=== PATIENT | male | born 1940 | race Caucasian/White ===

== ENCOUNTER 2020-05-16 14:14 | Outpatient (CLI) | payer MEDICARE, OTHER, SELFPAY ==
--- NOTE | 2020-05-16 14:25 | US_ITS ---
WS: [id number] ULTRASOUND RENAL TECHNIQUE: Ultrasound examination of both kidneys. CLINICAL INFORMATION: ACUTE KIDNEY FAILURE COMPARISON: None. FINDINGS: Incidental bilateral simple renal cysts. No hydronephrosis. Largest cyst left kidney measur es 3.8 x 3.8 cm RIGHT: Right kidney is normal in size and appearance. Echogenicity: Normal. Cortical thickness: 0.7 cm; Normal. Hydronephrosis: None. Perinephric fluid: None. Right kidney measures: 9.4 cm x 5.3 cm x 4.1 cm. LEFT: Left kidney is normal in size and appearance. Echogenicity: Normal. Cortical thickness: 1.1 cm; Normal. Hydronephrosis: None. Perinephric fluid: None. Left kidney measures: 10.4 cm x 7.3 cm x 4.8 cm. Normal visualized aorta. Prevoid bladder volume 181 cc. Post void bladder volume 5 cc. Enlarged prost ate measuring 4.7 x 5.2 x 3.3 cm US/US renal BI with PV bladder IMPRESSION: 1. No hydronephrosis in either kidney. 2. Normal Post void bladder volume 5 cc. 3. Incidental bilateral simple renal cysts. 4. Enlarged prostate. Recommend correlation PSA.
== END 2020-05-16 14:15 | disposition home or self-care (01) ==
LOC: RAD 14:22
PROVIDERS: Family Provider Family Medicine; Visit Provider Family Medicine
DX: N17.9 Acute kidney failure, unspecified (principal); N40.0 Benign prostatic hyperplasia without lower urinary tract symptoms; N28.1 Cyst of kidney, acquired
CPT/HCPCS: 76770; 76857

== ENCOUNTER → 2021-01-20 09:36 | Outpatient (BNVA) | payer MEDICARE, OTHER, SELFPAY | PROVIDERS: Family Provider Family Medicine; PCP Family Medicine; Visit Provider Urology | DX: Z12.5 Encounter for screening for malignant neoplasm of prostate (principal); R97.20 Elevated prostate specific antigen [PSA]; N40.1 Benign prostatic hyperplasia with lower urinary tract symptoms; R39.89 Other symptoms and signs involving the genitourinary system | CPT/HCPCS: 81003; G0103 ==

== ENCOUNTER 2021-01-30 18:28 | Emergency (ER) | payer MEDICARE, OTHER, SELFPAY ==
[2021-01-30 19:08] VITALS: BP 149/86; PULSE 101; RESP 18; TEMP 37.4; O2SAT 93; BMI 20.3
--- NOTE | 2021-01-30 19:23 | CTR_ITS ---
PROCEDURE INFORMATION: Exam: CT Cervical Spine Without Contrast Exam date and time: 01/30/2021 7:23 PM Age: 80 years old Clinical indication: Injury or trauma; Fall; Blunt trauma TECHNIQUE: Imaging protocol: Computed tomography images of the cervical spine without contrast. Radiation optimization: All CT scans at this facility use at least one of these dose optimization techniques: automated exposure control; mA and/or kV adjustment per patient size (includes targeted exams where dose is matched to clinical indication); or iterative reconstruction. COMPARISON: No relevant prior studies available. RADIATION DOSE METRICS: Total DLP (mGy-cm): 165.81 FINDINGS: Vertebrae: There are moderate degenerative changes at C5-C6 and C6-C7. Normal alignment. No acute fractures. Soft tissues: Unremarkable. Lungs: Lung apices are normal. CT/CT cervical spin wo con* [id number] IMPRESSION: No acute injury. Radiation Dose CTDIVOL = (mGy): DLP = 165.81 (mGy-cm)
--- NOTE | 2021-01-30 19:24 | CTR_ITS ---
PROCEDURE INFORMATION: Exam: CT Head Without Contrast Exam date and time: 01/30/2021 7:24 PM Age: 80 years old Clinical indication: Injury or trauma; Fall; Blunt trauma (contusions or hematomas); Without loss of consciousness; Dizziness TECHNIQUE: Imaging protocol: Computed tomography of the head without contrast. Radiation optimization: All CT scans at this facility use at least one of these dose optimization techniques: automated exposure control; mA and/or kV adjustment per patient size (includes targeted exams where dose is matched to clinical indication); or iterative reconstruction. COMPARISON: No relevant prior studies available. RADIATION DOSE METRICS: Total DLP (mGy-cm): 1106.9 FINDINGS: Brain: Age appropriate atrophy and small vessel ischemic change. No evidence of intracranial hemorrhage, mass effect, midline shift or extra-axial fluid collections. Midline structures are normal. Valentin-white matter differentiation is normal. Cerebral ventricles: No ventriculomegaly. Paranasal sinuses: Mucosal thickening in the ethmoid and frontal sinuses. Mastoid air cells: Visualized mastoid air cells are well aerated. Orbital cavity: The patient has had bilateral lens replacement surgery. Vasculature: Carotid and vertebral artery atherosclerotic calcification. Bones/joints: Unremarkable. No acute fracture. Soft tissues: Unremarkable. CT/CT head wo con* [id number] IMPRESSION: No acute intracranial injury. Radiation Dose CTDIVOL = (mGy): DLP = 1106.9 (mGy-cm)
[2021-01-30 19:30] LABS: Glucose Point of Care 231 mg/dL (70-110)
[2021-01-30 23:11] VITALS: BP 149/82; PULSE 119; RESP 20; O2SAT 92
--- NOTE | 2021-01-30 23:44 | ED_ITS ---
Documented by User: KANIKA Logan 01/31/21 01:19 HPI - Fall General: Chief Complaint: Fall Stated Complaint: High Bloood Sugar\Fell\Dizzy Time Seen by Provider: 01/30/21 23:40 History of Present Illness: HPI Narrative: Patient this afternoon started having some dizziness when walking to the bathroom. Patient reports since he was started on medication for his prostate he has had increased dizzy spells. Patient also concerned because his blood sugars also been elevated above 200. Patient reports feeling better now but continues to have concerns about being lightheaded. Patient reports Dr. Godinez has him set up to have a biopsy of his prostate on Tuesday. Patient's last PSA was greater than 100. Review of Systems General: Reports: 10 or more systems reviewed and unremarkable except in HPI and below Neuro: Reports: dizziness PFSH ED PFSH: Medical History BPH loc w urin obs/LUTS Family History Father , AT AGE 77 Heart attack Mother , AT AGE 83 Aneurysm Social History Smoking and tobacco status: never smoked Alcohol intake: never Marital status: Current occupational status: retired History of recent travel: No Physical Exam Const: COMMON NORMALS: no acute distress and patient oriented x3 GENERAL APPEARANCE: cooperative HENMT: COMMON NORMALS: normocephalic and Normal external nose present HEAD & SCALP: normal to inspection and normocephalic NOSE: Normal external nose present MOUTH: Normal oral and palatal mucosa present Eye: GENERAL EYE: appearance normal, both eyes and all related structures Neck/C-Spine: COMMON NORMALS: full ROM Lymph: LYMPHATIC: no lymphadenopathy noted Chest: COMMONS NORMALS: normal inspection of the chest Resp: COMMON NORMALS: normal respiratory effort EFFORT & INSPECTION: Yes able to speak in complete sentences Cardio: COMMON NORMALS: regular rate and regular rhythm RATE: regular rate RHYTHM: regular rhythm GI: COMMON NORMALS: non-tender : COMMON NORMALS: Yes no CVA tenderness BLADDER/KIDNEY EXAM: Yes no CVA tenderness Back/Pelvis: COMMON NORMALS: no CVA tenderness and thoracic and lumbar spine normal to inspection Extremity: COMMON NORMALS: normal to inspection Neuro: COMMON NORMALS: patient oriented x3 and moves all extremities Psych: COMMON NORMALS: mental status grossly normal and cooperative Skin: COMMON NORMALS: no rashes or lesions noted GENERAL SKIN EXAM: no rashes or lesions noted Course Vital Signs: Vital signs: Vital Signs Temperature 99.3 F 01/30/21 19:08 Pulse Rate 110 H 01/31/21 01:26 Respiratory Rate 16 01/31/21 01:26 Blood Pressure 119/73 01/31/21 01:26 Pulse Oximetry 93 01/31/21 01:26 MDM - Fall MDM Narrative: Medical decision making narrative: Patient comes in today for complaints of lightheadedness. Patient reports he gets lightheaded frequently. Patient thinks is due to the prostate medication he was recently started on. On exam patient does have a blood pressure that is 100s over 60s. Respirations are even lungs are clear to auscultation. Skin is warm and dry. Patient is appropriate with speech. Differential diagnosis includes but not limited to dehydration, adverse drug effect, urinary tract infection. Patient does see Dr. Godinez for renal dysfunction. Patient's creatinine today is 1.6. Patient does have elevated white count 22.4. Patient's urine did have some white blood cells and bacteria in it. Suspect patient probably has a urinary tract infection which may be aggravating his dizziness more. We will start patient on Levaquin 500 daily for the next 7 days. Patient is scheduled to have a biopsy on Tuesday. Patient reported understanding of care plan and need for follow-up or return to the ER. Lab Data: Labs: Lab Results 01/30/21 01/31/21 01/31/21 19:27 00:15 00:15 WBC 22.4 10^3/uL H 10 ^3/uL (4.0-10.0) RBC 3.88 10^6/uL L 10 ^6/uL (4.1-5.3) Hgb 11.7 g/dL g/dL (11.7-16.6) Hct 36.6 % L % (42.0-52.0) MCV 94.3 fl H fl (80-94) MCH 30.2 pg pg (28.0-34.0) MCHC 32.0 g/dL g/dL (30.0-36.0) RDW 12.5 % % (12.1-15.1) Plt Count 267 10^3/cmm 10^3 /cmm (130-400) MPV 10.0 fL fL (7.4-10.4) Neut % (Auto) 90.4 % % Lymph % (Auto) 2.4 % % [place] % (Auto) 5.6 % % Eos % (Auto) 0.0 % % Baso % (Auto) 0.3 % % Neut # (Auto) 20.22 10^3/uL H 1 0^3/uL (1.8-7.7) Lymph # (Auto) 0.5 10^3/uL L 10^ 3/uL (0.8-4.8) [place] # (Auto) 1.3 10^3/uL H 10^ 3/uL (0.2-0.9) Eos # (Auto) 0.0 10^3/uL 10^3/ uL (0.0-0.8) Baso # (Auto) 0.1 10^3/uL 10^3/ uL (0.0-0.1) Nucleated RBC % (a uto) 0 % % Nucleated RBCs # 0.0 /100WBC /100W BC Sodium 133 mmol/L L mmol /L (136-145) Potassium 4.2 mmol/L mmol/L (3.5-5.1) Chloride 100 mmol/L mmol/L (98-107) Carbon Dioxide 21 mmol/L L mmol/ L (22-29) Anion Gap 16.2 (5-19) BUN 30 mg/dL H mg/dL (8-23) Creatinine 1.6 mg/dL H mg/dL (0.7-1.2) GFR Calculation Not Reportable Glucose 159 mg/dL H mg/dL (65-115) POC Glucose 231 mg/dL H mg/dL (70-110) Calculated Osmolal ity 286 mOsm/kg mOsm/ kg (285-295) Calcium 9.5 mg/dL mg/dL (8.5-10.5) Total Bilirubin 0.4 mg/dL mg/dL (0.15-1.2) AST 14 U/L U/L (0-40) ALT 7 U/L U/L (0-41) Alkaline Phosphata se 84 IU/L IU/L (40-130) Total Protein 7.7 g/dL g/dL (6.6-8.7) Albumin 3.6 g/dL g/dL (3.5-5.2) Globulin 4.1 g/dL g/dL (1.3-4.6) Urine Color Urine Appearance Urine pH Ur Specific Gravit y Urine Protein Urine Glucose (UA) Urine Ketones Urine Blood Urine Nitrate Urine Bilirubin Urine Urobilinogen Ur Leukocyte Eneida ase Urine RBC Urine WBC Ur Squamous Epith Cells Amorphous Sediment Urine Bacteria Hyaline Casts Coarse Granular Ca sts Serum Ketones 01/31/21 01/31/21 00:15 00:15 WBC RBC Hgb Hct MCV MCH MCHC RDW Plt Count MPV Neut % (Auto) Lymph % (Auto) [place] % (Auto) Eos % (Auto) Baso % (Auto) Neut # (Auto) Lymph # (Auto) [place] # (Auto) Eos # (Auto) Baso # (Auto) Nucleated RBC % (a uto) Nucleated RBCs # Sodium Potassium Chloride Carbon Dioxide Anion Gap BUN Creatinine GFR Calculation Glucose POC Glucose Calculated Osmolal ity Calcium Total Bilirubin AST ALT Alkaline Phosphata se Total Protein Albumin Globulin Urine Color Yellow (Yellow) Urine Appearance Sl hazy (CLEAR) Urine pH 5 (5-7) Ur Specific Gravit y 1.015 (1.005-1.030) Urine Protein 3+ H (Negative) Urine Glucose (UA) Norm (Normal) Urine Ketones Negative (Negative) Urine Blood 3+ H (Negative) Urine Nitrate Negative (Negative) Urine Bilirubin Neg (Negative) Urine Urobilinogen Norm mg/dL mg/dL (Negative) Ur Leukocyte Eneida ase Negative (Negative) Urine RBC 5-10 /hpf H /hpf (0-2) Urine WBC 0-4 /hpf H /hpf (0-5) Ur Squamous Epith Cells 0-4 /hpf H /hpf (0-5) Amorphous Sediment 1+ /hpf /hpf Urine Bacteria 2+ /hpf H /hpf (NONE) Hyaline Casts 0-4 /lpf H /lpf Coarse Granular Ca sts 0-4 /lpf H /lpf Serum Ketones Negative (Negative) Discharge Plan Discharge Patient Disposition: Home Clinical Impression: Acute UTI Fall Qualifiers: Encounter type: initial encounter Qualified Code(s): W19.XXXA - Unspecified fall, initial encounter Condition: Stable Prescriptions: Continued levofloxacin 500 mg tablet 500 mg PO DAILY Qty: 7 RF: 0 No Action lisinopril 5 mg tablet 5 mg PO DAILY RF: 0 finasteride 5 mg tablet 5 mg PO DAILY RF: 0 silodosin 8 mg capsule 8 mg PO DAILY Qty: 30 RF: 12 diazepam 10 mg tablet 10 mg PO ONCE Qty: 1 RF: 0 hydrocodone-acetaminophen 5-325 mg tablet 1 tab PO Q4H PRNRF: 0 aspirin 81 mg tablet,delayed release (DR/EC) 81 mg PO DAILY RF: 0 lovastatin 20 mg tablet 20 mg PO DAILY RF: 0 niacin 500 mg tablet 500 mg PO DAILY RF: 0 omeprazole 20 mg capsule,delayed release(DR/EC) 20 mg PO BID RF: 0 sodium polystyrene sulfonate 15 gram/60 mL suspension 15 g PO DAILY PRNRF: 0 Discharge Orders: Discharge ED (Routine); Ordered 01/31/21 Ordered By: Edgar Curry Discharge Diet: Usual diet Discharge Activity: Increase activity as tolerated Patient Instructions: Opioid Safety Activity Restrictions/Additional Instructions: Drink plenty of water. Take antibiotic daily for the next 7 days. Follow-up with primary care on Tuesday for recheck. Return to the ER for worsening symptoms or new concerns. Coding Level of Care Code ED Mathematics Instructor for Chg Fwd Exam Comprehensive Documented by User: Jhony Jaime DO 01/31/21 03:05 HPI - Fall General: Chief Complaint: Fall Stated Complaint: High Bloood Sugar\Fell\Dizzy Time Seen by Provider: 01/30/21 23:40 PFSH ED PFSH: Medical History BPH loc w urin obs/LUTS Family History Father , AT AGE 77 Heart attack Mother , AT AGE 83 Aneurysm Social History Smoking and tobacco status: never smoked Alcohol intake: never Marital status: Current occupational status: retired History of recent travel: No Course Vital Signs: Vital signs: Vital Signs Temperature 99.3 F 01/30/21 19:08 Pulse Rate 110 H 01/31/21 01:26 Respiratory Rate 16 01/31/21 01:26 Blood Pressure 119/73 01/31/21 01:26 Pulse Oximetry 93 01/31/21 01:26 MDM - Fall MDM Narrative: Medical decision making narrative: This patient was originally seen by KANIKA Peralta. I agree with his history, evaluation, and treatment. Lab Data: Labs: Lab Results 01/30/21 01/31/21 01/31/21 19:27 00:15 00:15 WBC 22.4 10^3/uL H 10 ^3/uL (4.0-10.0) RBC 3.88 10^6/uL L 10 ^6/uL (4.1-5.3) Hgb 11.7 g/dL g/dL (11.7-16.6) Hct 36.6 % L % (42.0-52.0) MCV 94.3 fl H fl (80-94) MCH 30.2 pg pg (28.0-34.0) MCHC 32.0 g/dL g/dL (30.0-36.0) RDW 12.5 % % (12.1-15.1) Plt Count 267 10^3/cmm 10^3 /cmm (130-400) MPV 10.0 fL fL (7.4-10.4) Neut % (Auto) 90.4 % % Lymph % (Auto) 2.4 % % [place] % (Auto) 5.6 % % Eos % (Auto) 0.0 % % Baso % (Auto) 0.3 % % Neut # (Auto) 20.22 10^3/uL H 1 0^3/uL (1.8-7.7) Lymph # (Auto) 0.5 10^3/uL L 10^ 3/uL (0.8-4.8) [place] # (Auto) 1.3 10^3/uL H 10^ 3/uL (0.2-0.9) Eos # (Auto) 0.0 10^3/uL 10^3/ uL (0.0-0.8) Baso # (Auto) 0.1 10^3/uL 10^3/ uL (0.0-0.1) Nucleated RBC % (a uto) 0 % % Nucleated RBCs # 0.0 /100WBC /100W BC Sodium 133 mmol/L L mmol /L (136-145) Potassium 4.2 mmol/L mmol/L (3.5-5.1) Chloride 100 mmol/L mmol/L (98-107) Carbon Dioxide 21 mmol/L L mmol/ L (22-29) Anion Gap 16.2 (5-19) BUN 30 mg/dL H mg/dL (8-23) Creatinine 1.6 mg/dL H mg/dL (0.7-1.2) GFR Calculation Not Reportable Glucose 159 mg/dL H mg/dL (65-115) POC Glucose 231 mg/dL H mg/dL (70-110) Calculated Osmolal ity 286 mOsm/kg mOsm/ kg (285-295) Calcium 9.5 mg/dL mg/dL (8.5-10.5) Total Bilirubin 0.4 mg/dL mg/dL (0.15-1.2) AST 14 U/L U/L (0-40) ALT 7 U/L U/L (0-41) Alkaline Phosphata se 84 IU/L IU/L (40-130) Total Protein 7.7 g/dL g/dL (6.6-8.7) Albumin 3.6 g/dL g/dL (3.5-5.2) Globulin 4.1 g/dL g/dL (1.3-4.6) Urine Color Urine Appearance Urine pH Ur Specific Gravit y Urine Protein Urine Glucose (UA) Urine Ketones Urine Blood Urine Nitrate Urine Bilirubin Urine Urobilinogen Ur Leukocyte Eneida ase Urine RBC Urine WBC Ur Squamous Epith Cells Amorphous Sediment Urine Bacteria Hyaline Casts Coarse Granular Ca sts Serum Ketones 01/31/21 01/31/21 00:15 00:15 WBC RBC Hgb Hct MCV MCH MCHC RDW Plt Count MPV Neut % (Auto) Lymph % (Auto) [place] % (Auto) Eos % (Auto) Baso % (Auto) Neut # (Auto) Lymph # (Auto) [place] # (Auto) Eos # (Auto) Baso # (Auto) Nucleated RBC % (a uto) Nucleated RBCs # Sodium Potassium Chloride Carbon Dioxide Anion Gap BUN Creatinine GFR Calculation Glucose POC Glucose Calculated Osmolal ity Calcium Total Bilirubin AST ALT Alkaline Phosphata se Total Protein Albumin Globulin Urine Color Yellow (Yellow) Urine Appearance Sl hazy (CLEAR) Urine pH 5 (5-7) Ur Specific Gravit y 1.015 (1.005-1.030) Urine Protein 3+ H (Negative) Urine Glucose (UA) Norm (Normal) Urine Ketones Negative (Negative) Urine Blood 3+ H (Negative) Urine Nitrate Negative (Negative) Urine Bilirubin Neg (Negative) Urine Urobilinogen Norm mg/dL mg/dL (Negative) Ur Leukocyte Eneida ase Negative (Negative) Urine RBC 5-10 /hpf H /hpf (0-2) Urine WBC 0-4 /hpf H /hpf (0-5) Ur Squamous Epith Cells 0-4 /hpf H /hpf (0-5) Amorphous Sediment 1+ /hpf /hpf Urine Bacteria 2+ /hpf H /hpf (NONE) Hyaline Casts 0-4 /lpf H /lpf Coarse Granular Ca sts 0-4 /lpf H /lpf Serum Ketones Negative (Negative) Discharge Plan Discharge Patient Disposition: Home Clinical Impression: Acute UTI Fall Qualifiers: Encounter type: initial encounter Qualified Code(s): W19.XXXA - Unspecified fall, initial encounter Condition: Stable Prescriptions: Continued levofloxacin 500 mg tablet 500 mg PO DAILY Qty: 7 RF: 0 No Action lisinopril 5 mg tablet 5 mg PO DAILY RF: 0 finasteride 5 mg tablet 5 mg PO DAILY RF: 0 silodosin 8 mg capsule 8 mg PO DAILY Qty: 30 RF: 12 diazepam 10 mg tablet 10 mg PO ONCE Qty: 1 RF: 0 hydrocodone-acetaminophen 5-325 mg tablet 1 tab PO Q4H PRNRF: 0 aspirin 81 mg tablet,delayed release (DR/EC) 81 mg PO DAILY RF: 0 lovastatin 20 mg tablet 20 mg PO DAILY RF: 0 niacin 500 mg tablet 500 mg PO DAILY RF: 0 omeprazole 20 mg capsule,delayed release(DR/EC) 20 mg PO BID RF: 0 sodium polystyrene sulfonate 15 gram/60 mL suspension 15 g PO DAILY PRNRF: 0 Discharge Orders: Discharge ED (Routine); Ordered 01/31/21 Ordered By: Edgar Curry Discharge Diet: Usual diet Discharge Activity: Increase activity as tolerated Patient Instructions: Opioid Safety Activity Restrictions/Additional Instructions: Drink plenty of water. Take antibiotic daily for the next 7 days. Follow-up with primary care on Tuesday for recheck. Return to the ER for worsening symptoms or new concerns. Coding Level of Care Code ED Mathematics Instructor for Madeline Fwlisa Exam Comprehensive
[2021-01-31 00:28] LABS: Basophils # 0.1 10^3/uL (0.0-0.1); Basophils % 0.3 %; Hematocrit 36.6 % (42.0-52.0); Hemoglobin 11.7 g/dL (11.7-16.6); Lymphocytes # 0.5 10^3/uL (0.8-4.8); Lymphocytes % 2.4 %; Mean Corpuscular Hemoglobin 30.2 pg (28.0-34.0); Mean Corpuscular Volume 94.3 fl (80-94); Monocytes # 1.3 10^3/uL (0.2-0.9); Monocytes % 5.6 %; Neutrophils # 20.22 10^3/uL (1.8-7.7); Neutrophils % 90.4 %; Nucleated Red Blood Cells % 0 %; Platelet Count 267 10^3/cmm (130-400); Red Blood Count 3.88 10^6/uL (4.1-5.3); Red Cell Distribution Width 12.5 % (12.1-15.1); White Blood Count 22.4 10^3/uL (4.0-10.0)
[2021-01-31] MEDS: sodium chloride 0.9% 500 ML 999 ML IV (00:28)
[2021-01-31 00:31] VITALS: BP 118/69; PULSE 105; RESP 18; O2SAT 91
[2021-01-31 00:34] LABS: Add Urine Microscopic? YES; Bilirubin Urine Neg (Negative); Blood Urine 3+ (Negative); Glucose Urine UA Norm (Normal); Ketones Urine Negative (Negative); Leukocyte Esterase Urine Negative (Negative); Nitrate Urine Negative (Negative); Protein Urine 3+ (Negative); Specific Gravity, Urine 1.015 (1.005-1.030); Urine Appearance SL Hazy (CLEAR); Urine Color Yellow (Yellow); Urobilinogen Urine Norm (Negative); pH Urine 5 (5-7)
[2021-01-31 00:36] LABS: Add Urine Culture? Yes; Amorphous Sediment Urine 1+ /hpf; Bacteria Urine 2+ /hpf; Coarse Granular Casts Urine 0-4 /lpf; Hyaline Casts Urine 0-4 /lpf; Squamous Epithelial Cell Urine 0-4 /hpf (0-5); WBC Urine 0-4 /hpf (0-5)
[2021-01-31 00:40] LABS: Ketone (Acetest) Serum Negative (Negative)
[2021-01-31 00:48] LABS: Alanine Aminotransferase 7 U/L (0-41); Albumin Level 3.6 g/dL (3.5-5.2); Alkaline Phosphatase 84 IU/L (40-130); Anion Gap 16.2 (5-19); Aspartate Amino Transferase 14 U/L (0-40); Blood Urea Nitrogen 30 mg/dL (8-23); Calcium 9.5 mg/dL (8.5-10.5); Carbon Dioxide 21 mmol/L (22-29); Chloride 100 mmol/L (98-107); Globulin 4.1 g/dL (1.3-4.6); Glucose 159 mg/dL (65-115); Osmolality Calculated 286 mOsm/kg (285-295); Potassium 4.2 mmol/L (3.5-5.1); Sodium 133 mmol/L (136-145); Total Bilirubin 0.4 mg/dL (0.15-1.2); Total Protein 7.7 g/dL (6.6-8.7)
[2021-01-31] MEDS: levoFLOXacin 500 mg Tablet PO (01:24)
[2021-01-31 01:26] VITALS: BP 119/73; PULSE 110; RESP 16; O2SAT 93
== END 2021-01-31 01:27 | disposition home or self-care (01) ==
PROVIDERS: Emergency Provider Nurse Practitioner Family
DX: N39.0 Urinary tract infection, site not specified (principal); Z79.82 Long term (current) use of aspirin
CPT/HCPCS: 36416; 70450; 72125; 80053; 81001; 82009; 82962; 85025; 87086; 99283; J7040

== ENCOUNTER 2021-02-03 08:42 | Emergency (ER) | payer MEDICARE, OTHER, SELFPAY ==
[2021-02-03 08:56] VITALS: BP 139/85; PULSE 97; RESP 18; TEMP 36.3; O2SAT 96; BMI 23.0
--- NOTE | 2021-02-03 09:19 | XR_ITS ---
WS: [id number] XR chest 1V portable [id number] REASON FOR EXAM: dyspnea/cough FINDINGS: The heart and mediastinum are within normal limits. Calcified granulomatous disease present in both hemithoraces. Coarse reticular changes and lucencies seen in the upper lung peters which may indicate extensive breana tral lobar emphysema. Opacity overlying the lower medial right lung field. This appears to be consolidated and/or atelectat ic right lower lung. No other significant abnormality. XR/XR chest 1V portable [id number] IMPRESSION: Atelectasis/consolidation of the medial right lower lobe or possibly the right middle lobe. This may be secondary to bronchial obstruction, intrinsic or extri nsic.
--- NOTE | 2021-02-03 09:21 | ED_ITS ---
HPI - General Adult General: Chief complaint: General Medical Stated complaint: COUGHING UP BLOOD Time Seen by Provider: 02/03/21 08:46 History of Present Illness: HPI narrative: 80-year-old female presents emergency room with complaints of minor hemoptysis. He said a little bit of productive cough and nasal drainage last couple days this morning woke up and had some blood-streaked sputum he showed me an example at the bedside when I initially seen him. He denies any fever no sweats or chills. He has been very slightly short of breath he does not have a history of COPD or asthma is not on any inhaled medications. Recently was started on antibiotics for cystitis after a prostate biopsy. Onset (ago): day(s) Location: chest Severity: mild Relieving factors: none Exacerbating factors: none Associated symptoms: Reports cough; Deny chest pain, confusion, diaphoresis, decreased appetite, dyspnea, fevers/chills, headache(s), malaise, nausea, rash, palpitations, seizures, short of breath, syncope, vomiting or weakness Treatments prior to arrival: none Review of Systems Const: Denies: malaise or diaphoresis ENMT: Denies: throat pain, ear or mastoid pain, nasal discharge or nasal congestion Card: Denies: chest pain, palpitations or syncope Resp: Reports: productive cough and hemoptysis (scant); Denies: dyspnea GI: Denies: nausea or vomiting : Denies: flank pain, dysuria, urinary frequency or urinary urgency Skin/Breast: Denies: rash Neuro: Denies: headache(s) or confusion PFS ED PFSH: Medical History BPH loc w urin obs/LUTS Family History Father , AT AGE 77 Heart attack Mother , AT AGE 83 Aneurysm Social History Smoking and tobacco status: never smoked Alcohol intake: never Marital status: Current occupational status: retired History of recent travel: No Physical Exam Const: COMMON NORMALS: no acute distress GENERAL APPEARANCE: cooperative and comfortable ORIENTATION/CONSCIOUSNESS: Yes awake, Yes oriented to person, Yes oriented to place and Yes oriented to time HENMT: COMMON NORMALS: normocephalic, atraumatic and hearing grossly normal bilaterally HEAD & SCALP: normocephalic and atraumatic Neck/C-Spine: COMMON NORMALS: no JVD Resp: COMMON NORMALS: normal respiratory effort, No retractions and No use of accessory muscles AUSCULTATION: rales on the right at the base Cardio: COMMON NORMALS: no JVD, regular rate, regular rhythm and No murmurs present (Cardio) RATE: regular rate RHYTHM: regular rhythm GI: COMMON NORMALS: Soft to palpation and No hepatosplenomegaly present AUSCULTATION: Yes normoactive bowel sounds PALPATION: Yes Soft to palpation, No Tenderness to palpation present (GI), No Guarding due to palpation present (GI) and Yes No hepatosplenomegaly present Extremity: COMMON NORMALS: normal to inspection, capillary refill normal, no clubbing, cyanosis or edema, no calf tenderness and no pedal edema Neuro: SENSORIUM/ORIENTATION: Yes oriented to person, Yes oriented to place an d Yes oriented to time Skin: COMMON NORMALS: no rashes or lesions noted GENERAL SKIN EXAM: no r ashes or lesions noted Course Vital Signs: Vital signs: Vital Signs Temperature 97.4 F L 02/03/21 08:56 Pulse Rate 79 02/03/21 10:39 Respiratory Rate 18 02/03/21 10:39 Blood Pressure 120/75 02/03/21 10:39 Pulse Oximetry 94 02/03/21 10:39 MDM - General Adult MDM Narrative: Medical decision making narrative: Labs and imaging reviewed. Patient has a right lower lobe pneumonia consistent with what was heard on exam. We will switch him to Ceftin or have him stop the Levaquin. Have him follow-up with his primary care doctor within 1 week. The hemoptysis he is having is quite minor legs from what he exhibited to means consistent with his present infection if it persists after this is cleared he may need further evaluation. Lab Data: Labs: Lab Results 02/03/21 02/03/21 09:09 09:09 WBC 8.1 10^3/uL 10^3/ uL (4.0-10.0) RBC 3.66 10^6/uL L 10 ^6/uL (4.1-5.3) Hgb 11.1 g/dL L g/dL (11.7-16.6) Hct 35.1 % L % (42.0-52.0) MCV 95.9 fl H fl (80-94) MCH 30.3 pg pg (28.0-34.0) MCHC 31.6 g/dL g/dL (30.0-36.0) RDW 13.2 % % (12.1-15.1) Plt Count 333 10^3/cmm 10^3 /cmm (130-400) MPV 10.1 fL fL (7.4-10.4) Neut % (Auto) 67.2 % % Lymph % (Auto) 17.6 % % [place] % (Auto) 9.5 % % Eos % (Auto) 2.2 % % Baso % (Auto) 0.5 % % Neut # (Auto) 5.42 10^3/uL 10^3 /uL (1.8-7.7) Lymph # (Auto) 1.4 10^3/uL 10^3/ uL (0.8-4.8) [place] # (Auto) 0.8 10^3/uL 10^3/ uL (0.2-0.9) Eos # (Auto) 0.2 10^3/uL 10^3/ uL (0.0-0.8) Baso # (Auto) 0.0 10^3/uL 10^3/ uL (0.0-0.1) Nucleated RBC % (a uto) 0 % % Nucleated RBCs # 0.0 /100WBC /100W BC Sodium 136 mmol/L mmol/L (136-145) Potassium 3.4 mmol/L L mmol /L (3.5-5.1) Chloride 101 mmol/L mmol/L (98-107) Carbon Dioxide 22 mmol/L mmol/L (22-29) Anion Gap 16.4 (5-19) BUN 31 mg/dL H mg/dL (8-23) Creatinine 1.9 mg/dL H mg/dL (0.7-1.2) GFR Calculation Not Reportable Glucose 99 mg/dL mg/dL (65-115) Calculated Osmolal ity 289 mOsm/kg mOsm/ kg (285-295) Calcium 9.5 mg/dL mg/dL (8.5-10.5) Total Bilirubin 0.2 mg/dL mg/dL (0.15-1.2) AST 25 U/L U/L (0-40) ALT 12 U/L U/L (0-41) Alkaline Phosphata se 91 IU/L IU/L (40-130) Total Protein 7.4 g/dL g/dL (6.6-8.7) Albumin 3.3 g/dL L g/dL (3.5-5.2) Globulin 4.1 g/dL g/dL (1.3-4.6) Discharge Plan Discharge Patient Disposition: Home Clinical Impression: RLL pneumonia Condition: Stable Prescriptions: New cefdinir 300 mg capsule 300 mg PO BID 10 Days Qty: 20 RF: 0 No Action lisinopril 5 mg tablet 5 mg PO DAILY RF: 0 finasteride 5 mg tablet 5 mg PO DAILY RF: 0 silodosin 8 mg capsule 8 mg PO DAILY Qty: 30 RF: 12 diazepam 10 mg tablet 10 mg PO ONCE Qty: 1 RF: 0 hydrocodone-acetaminophen 5-325 mg tablet 1 tab PO Q4H PRNRF: 0 aspirin 81 mg tablet,delayed release (DR/EC) 81 mg PO DAILY RF: 0 lovastatin 20 mg tablet 20 mg PO DAILY RF: 0 niacin 500 mg tablet 500 mg PO DAILY RF: 0 omeprazole 20 mg capsule,delayed release(DR/EC) 20 mg PO BID RF: 0 sodium polystyrene sulfonate 15 gram/60 mL suspension 15 g PO DAILY PRNRF: 0 levofloxacin 500 mg tablet 500 mg PO DAILY Qty: 7 RF: 0 Discharge Orders: Discharge ED (Routine); Ordered 02/03/21 Ordered By: Cj Urias Discharge Diet: Usual diet Discharge Activity: Increase activity as tolerated Patient Instructions: Opioid Safety Coding Level of Care Code ED Calender Machine Operator for [place] Fwd Exam Comprehensive
[2021-02-03 09:25] LABS: Basophils % 0.5 %; Eosinophils # 0.2 10^3/uL (0.0-0.8); Eosinophils % 2.2 %; Hematocrit 35.1 % (42.0-52.0); Hemoglobin 11.1 g/dL (11.7-16.6); Lymphocytes # 1.4 10^3/uL (0.8-4.8); Lymphocytes % 17.6 %; Mean Corpuscular HGB Conc 31.6 g/dL (30.0-36.0); Mean Corpuscular Hemoglobin 30.3 pg (28.0-34.0); Mean Corpuscular Volume 95.9 fl (80-94); Mean Platelet Volume 10.1 fL (7.4-10.4); Monocytes # 0.8 10^3/uL (0.2-0.9); Monocytes % 9.5 %; Neutrophils # 5.42 10^3/uL (1.8-7.7); Neutrophils % 67.2 %; Nucleated Red Blood Cells % 0 %; Platelet Count 333 10^3/cmm (130-400); Red Blood Count 3.66 10^6/uL (4.1-5.3); Red Cell Distribution Width 13.2 % (12.1-15.1); White Blood Count 8.1 10^3/uL (4.0-10.0)
[2021-02-03 09:37] VITALS: BP 111/72; PULSE 87; RESP 18; O2SAT 95
[2021-02-03 10:11] VITALS: BP 120/75; PULSE 70; RESP 17; O2SAT 94
[2021-02-03 10:18] LABS: Alanine Aminotransferase 12 U/L (0-41); Albumin Level 3.3 g/dL (3.5-5.2); Alkaline Phosphatase 91 IU/L (40-130); Anion Gap 16.4 (5-19); Aspartate Amino Transferase 25 U/L (0-40); Blood Urea Nitrogen 31 mg/dL (8-23); Calcium 9.5 mg/dL (8.5-10.5); Carbon Dioxide 22 mmol/L (22-29); Chloride 101 mmol/L (98-107); Globulin 4.1 g/dL (1.3-4.6); Glucose 99 mg/dL (65-115); Osmolality Calculated 289 mOsm/kg (285-295); Potassium 3.4 mmol/L (3.5-5.1); Sodium 136 mmol/L (136-145); Total Bilirubin 0.2 mg/dL (0.15-1.2); Total Protein 7.4 g/dL (6.6-8.7)
[2021-02-03 10:39] VITALS: BP 120/75; PULSE 79; RESP 18; O2SAT 94
== END 2021-02-03 10:37 | disposition home or self-care (01) ==
PROVIDERS: Emergency Provider Family Medicine
DX: J18.8 Other pneumonia, unspecified organism (principal); Z79.82 Long term (current) use of aspirin
CPT/HCPCS: 71045; 80053; 85025; 87070; 87205; 99283

== ENCOUNTER → 2021-02-06 11:03 | Outpatient (BNVA) | payer MEDICARE, OTHER, SELFPAY | PROVIDERS: Visit Provider Urology | DX: R97.20 Elevated prostate specific antigen [PSA] (principal) | CPT/HCPCS: 88305 ==

== ENCOUNTER 2021-03-12 14:25 | Outpatient (CLI) | payer MEDICARE, OTHER, SELFPAY ==
--- NOTE | 2021-03-19 08:23 | ONC CON_ITS ---
Dr. Haile New Patient Note Patient: Ranjan De La Paz Unit #: [id number]: 1940 Dicatated By: Burak Haile M.D.Date of Visit: Mar 12, 2021 Onc MED New Patient/Consult Referring Physician: Dr. Antwan Lou M.D. History of Present Illness: Ranjan De La Paz, is a 80-year-old gentleman with a history of elevated PSA and dysuria, was evaluated by urology on January 20, 2021, at that time he underwent WOODY which confirmed lobulated right nodule, subsequently patient underwent TRUSP/biopsy on February 06, 2021 which confirmed prostatic adenocarcinoma, as 6 out of 12 core biopsy were positive with Earline 4+3, high-volume. PSA more than 10 e.g. 10.4, As per patient, he was having problem with urination so he was treated with Flomax which was making him weak and also having some dizziness then his medicine was switched to Rapaflo, he is tolerating that reasonably well. As per patient he went to [facility] on January 30, 2021 with lightheadedness and generalized weakness and fatigue, he was diagnosed with urine tract infection and was given a course of antibiotic with Levaquin and then again went back on February 03, 2021 with coughing up some blood and chest x-ray showed right lower lobe pneumonia, at that time his Levaquin was changed to Ceftin, with that his symptoms resolved. Today he denies any fever chills, denies any nausea or vomiting denies any diarrhea or constipation, denies any hematuria but still complaining of generalized weakness and fatigue. But no new bony pains, no weight loss Past Medical History: Mr. De La Paz's medical history consists of bph. Past Surgical History: Mr. Luna surgical/procedural history consists of prostae biopsy. Medications: Aspirin 1 Tablet (of 81 mg) Tablet, enteric coated Oral daily, diazePAM 1 (10 mg) Tablet Oral once, Finasteride 1 Tablet (of 5 mg) Oral daily, HYDROcodone-Acetaminophen 1 Tablet (of 5-325 mg) Oral q 4 hours PRN, levoFLOXacin 1 Tablet (of 500 mg) Oral daily, Lisinopril 1 Tablet (of 5 mg) Oral daily, Lovastatin 1 Tablet (of 20 mg) Oral daily, Niacin 1 Tablet (of 500 mg) Oral daily, Omeprazole 1 Capsule (of 20 mg) Capsule Delayed Release Oral b.i.d., Silodosin 1 Capsule (of 8 mg) Oral daily, Sodium Polystyrene Sulfonate 15 g (of 15 g/60mL) Powder Oral daily Allergies: Amoxicillin and Nystatin. Social History: Mr. De La Paz is . Mr. De La Paz has never smoked. He has no history of drinking. Family History: Mr. De La Paz's mother at age 83: aneurysm. Mr. De La Paz's father at age 77: myocardial infarction. Review Of Symptoms: Review of Systems is not available for this patient. Vital Signs: Performed on Mar 12, 2021 14:46: 0, 0, 22.35, 1.63 sq.m, 64 in, 95 % (LOW), 92 /min, 18 /min, 129/74 mm(hg), 99.1 F (HIGH), and 130.2 lbs (HIGH). Performance Status: 0 - Fully active, able to carry on all predisease activities without restrictions. (ECOG) Physical Examination: ENMT - No mouth sores, no thrush, no jaundice, Respiratory - Lungs are clear to auscultation, Cardiovascular - Regular rate and rhythm of heart, Abdomen - Soft, bowel sounds present, Extremities - No visible edema. Lab/Imaging: Most recent lab results are not available for this patient. 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 on February 06, 2021 which showed 6 out of 12 core biopsy positive for [place] 4+3, high-volume, PSA 10.4, abnormal WOODY (lobulated right nodule), T2a, NX, intermediate, unfavorable Plan: Discussed with patient regarding his disease status and treatment options, as per urology note, patient is not a candidate for surgery, being unfavorable, intermediate risk, as per NCCN guidelines, patient is a candidate for short course of ADT with Zoladex every 3 months x2, concurrent with radiation therapy, Being unfavorable intermediate risk, will consider CT scan of abdomen pelvis and bone scan if is not ordered by urology. All the side effect, possible benefits associated with Zoladex including but not limited to, hot flashes, mood swings, fluid retention, generalized weakness and fatigue, decreased libido, bone demineralization, were mentioned further teaching will be done by chemotherapy nurse, will obtain approval from his insurance. I will refer him to radiation oncology for evaluation for concurrent radiation therapy. Once we have approval from insurance patient will be called in for Zoladex injection then we will see him back 3 months after his Zoladex injection with PSA and for second/last dose of Zoladex. Patient will start radiation therapy probably 8 weeks after first Zoladex injection. Signed By: Burak Haile M.D. <<Signature on File>>
== END 2021-03-12 14:26 | disposition home or self-care (01) ==
LOC: ONCMED 14:33
PROVIDERS: Visit Provider Internal Medicine Hematology & Oncology
DX: C61 Malignant neoplasm of prostate (principal); Z79.818 Long term (current) use of other agents affecting estrogen receptors and estrogen levels
CPT/HCPCS: 99205

== ENCOUNTER 2021-04-03 08:06 | Outpatient (CLI) | payer MEDICARE, OTHER, SELFPAY ==
--- NOTE | 2021-04-03 08:16 | CTR_ITS ---
PROCEDURE INFORMATION: Exam: CT Chest With Contrast; Diagnostic Exam date and time: 04/03/2021 8:16 AM Age: 80 years old Clinical indication: Condition or disease; Other: Prostate CA; Primary cancer: Trusp/biopsy on February 06, 2021. Which confirmed prostatic adenocarcinoma, as 6 out of 12 core biopsy were. Positive with laura 4+3, high-volume. Psa more than 10 e. G. 10.4, ; follow-up oncological assessment; Prior surgery; Surgery type: Prostate bx; Patient HX: Generalized wekaness and fatigue; Additional info: Prostate cancer TECHNIQUE: Imaging protocol: Diagnostic computed tomography of the chest with contrast. Radiation optimization: All CT scans at this facility use at least one of these dose optimization techniques: automated exposure control; mA and/or kV adjustment per patient size (includes targeted exams where dose is matched to clinical indication); or iterative reconstruction. Contrast material: VISIPAQUE; Contrast volume: 95 ml; Contrast route: INTRAVENOUS (IV); COMPARISON: NM bone scan whole body* [id number] 04/03/2021 8:16 AM RADIATION DOSE METRICS: Total DLP (mGy-cm): 911.07 FINDINGS: Lungs: Streaky bilateral atelectasis, right greater than left. No consolidation. Pleural spaces: Unremarkable. No pneumothorax. No pleural effusion. Heart: Mildly enlarged heart. Coronary atherosclerotic calcifications seen. No pericardial effusion. Aorta: Unremarkable. No aortic aneurysm. Lymph nodes: There is multiple small calcified lymph nodes in the mediastinum and bilateral hilar regions, likely sequela of previous granulomatous disease or treatment. Diaphragm: A small hiatal hernia is present. Bones/joints: Degenerative changes of the spine seen. Left shoulder surgical changes noted. Soft tissues: Unremarkable. PROCEDURE INFORMATION: Exam: CT Abdomen And Pelvis With Contrast Exam date and time: 04/03/2021 8:16 AM Age: 80 years old Clinical indication: Condition or disease; Other: Prostate CA; Primary cancer: Trusp/biopsy on February 06, 2021. Which confirmed prostatic adenocarcinoma, as 6 out of 12 core biopsy were. Positive with laura 4+3, high-volume. Psa more than 10 e. G. 10.4, ; follow-up oncological assessment; Prior surgery; Surgery type: Prostate bx; Patient HX: Generalized wekaness and fatigue; Additional info: Prostate cancer TECHNIQUE: Imaging protocol: Computed tomography of the abdomen and pelvis with contrast. Radiation optimization: All CT scans at this facility use at least one of these dose optimization techniques: automated exposure control; mA and/or kV adjustment per patient size (includes targeted exams where dose is matched to clinical indication); or iterative reconstruction. Contrast material: VISIPAQUE; Contrast volume: 95 ml; Contrast route: INTRAVENOUS (IV); COMPARISON: NM bone scan whole body* [id number] 04/03/2021 8:16 AM RADIATION DOSE METRICS: Total DLP (mGy-cm): 991.07 FINDINGS: Lungs: Streaky bibasilar atelectasis noted. Diaphragm: A small hiatal hernia is present. Liver: Unchanged subcentimeter focus of decreased attenuation in the right hepatic lobe. The liver is otherwise unremarkable. Gallbladder and bile ducts: There is mild intra and extrahepatic biliary ductal dilatation, likely secondary to post cholecystectomy status. Pancreas: Normal. No ductal dilation. Spleen: Normal. No splenomegaly. Adrenal glands: Normal. No mass. Kidneys and ureters: There is bilateral renal cysts, the largest on the left measuring 4.1 cm. Stomach and bowel: There is diverticulosis without evidence of diverticulitis. The patient is status post right hemicolectomy. Patent inter colic anastomosis. Appendix: No evidence of appendicitis. Intraperitoneal space: Unremarkable. No free air. No significant fluid collection. Vasculature: Mild diffuse atherosclerotic disease is present. Lymph nodes: Unremarkable. No enlarged lymph nodes. Urinary bladder: Unremarkable as visualized. Reproductive: Unremarkable as visualized. Bones/joints: Degenerative changes of the spine seen. Soft tissues: Unremarkable. CT/CT chest abd pel w con* IMPRESSION: No evidence of metastatic disease in the chest. IMPRESSION: No evidence of metastatic disease in the abdomen or pelvis. COMMENTS: Consistent with the [employer]'s Incidental Findings Committee white paper (J Am Christopher Radiol 2018): Any incidental renal lesion less than 1 cm or classified as too small to characterize, or any incidental cystic renal lesion characterized as simple-appearing, is likely benign. No follow-up imaging is recommended for these lesions per consensus recommendations based on imaging criteria. Radiation Dose CTDIVOL = (mGy): DLP = 911.07~991.07 (mGy-cm)
--- NOTE | 2021-04-03 08:16 | NM_ITS ---
WS: [id number] NUCLEAR MEDICINE BONE SCAN Radiopharmaceutical: 25.1 Tc-99m MDP mCi IV Injection site: Right antecubital Postinjection imaging delay: 1 hr CLINICAL INFORMATION: PROSTATE CANCER COMPARISON: None. FINDINGS: Bone lesions: There are no osseous lesions suspicious for metastatic disease. Soft tissue contours: Normal. Kidneys: Focal area of radiotracer retention within the upper pole left kidney. Other findings: Focal area of uptake within the right sternoclavicular joint likely degenerative or i nflammatory. NM/NM bone scan whole body* [id number] IMPRESSION: 1. No evidence of osseous metastatic disease. 2. Focal area of uptake within the right sternoclavicular joint likely degener ative or inflammatory. 3. Focal area of radiotracer retention within the upper pole left kidney is no nspecific. Multiple complex and simple cysts seen on the concurrent CT. Conside rations include obstructed calyx with retention versus occult ossified renal le ondina. Recommend further evaluation with ultrasound
[2021-04-03 09:12] LABS: Blood Urea Nitrogen 29 mg/dL (8-23)
[2021-04-03] MEDS: iohexol 300 mg/mL 50 mL Btl PO (10:01)
[2021-04-03] MEDS: iodixanol 320 mg/mL 100mL Btl IV (10:01)
== END 2021-04-03 08:07 | disposition home or self-care (01) ==
PROVIDERS: PCP Family Medicine; Visit Provider Internal Medicine Hematology & Oncology
DX: C61 Malignant neoplasm of prostate (principal)
CPT/HCPCS: 71260; 74177; 78306; 82565; 84520; A9561

== ENCOUNTER 2021-04-20 11:52 | Outpatient (CLI) | payer MEDICARE, OTHER, SELFPAY ==
[2021-04-20 12:43] LABS: Basophils % 0.4 %; Eosinophils # 0.3 10^3/uL (0.0-0.8); Hematocrit 37.8 % (42.0-52.0); Hemoglobin 11.9 g/dL (11.7-16.6); Lymphocytes % 27.7 %; Mean Corpuscular HGB Conc 31.5 g/dL (30.0-36.0); Mean Corpuscular Hemoglobin 30.6 pg (28.0-34.0); Mean Corpuscular Volume 97.2 fl (80-94); Monocytes # 0.7 10^3/uL (0.2-0.9); Monocytes % 8.9 %; Neutrophils # 4.31 10^3/uL (1.8-7.7); Neutrophils % 58.7 %; Nucleated Red Blood Cells % 0 %; Platelet Count 304 10^3/cmm (130-400); Red Blood Count 3.89 10^6/uL (4.1-5.3); Red Cell Distribution Width 12.9 % (12.1-15.1); White Blood Count 7.3 10^3/uL (4.0-10.0)
[2021-04-20 13:10] LABS: Alanine Aminotransferase 6 U/L (0-41); Alkaline Phosphatase 97 IU/L (40-130); Anion Gap 17.6 (5-19); Aspartate Amino Transferase 14 U/L (0-40); Blood Urea Nitrogen 21 mg/dL (8-23); Calcium 8.5 mg/dL (8.5-10.5); Carbon Dioxide 19 mmol/L (22-29); Chloride 104 mmol/L (98-107); Globulin 3.7 g/dL (1.3-4.6); Glucose 73 mg/dL (65-115); Osmolality Calculated 282 mOsm/kg (285-295); Potassium 5.6 mmol/L (3.5-5.1); Sodium 135 mmol/L (136-145); Total Bilirubin 0.2 mg/dL (0.15-1.2); Total Protein 7.7 g/dL (6.6-8.7)
[2021-04-20] MEDS: lidocaine 1% INJ 20 mL INJECTION (14:47)
[2021-04-20] MEDS: goserelin acetate 10.8 mg Implant SUBCUT (15:00)
--- NOTE | 2021-04-20 16:20 | ONC FU_ITS ---
Dr. Haile follow up note Patient: Ranjan De La Paz Unit #: [id number]: 1940 Dicatated By: Burak Haile M.D.Date of Visit:Apr 20, 2021 Onc Med Follow-up/Prog Note History of Present Illness: Ranjan De La Paz, is a 80-year-old gentleman with a history of elevated PSA and dysuria, was evaluated by urology on January 20, 2021, at that time he underwent WOODY which confirmed lobulated right nodule, subsequently patient underwent TRUSP/biopsy on February 06, 2021 which confirmed prostatic adenocarcinoma, as 6 out of 12 core biopsy were positive with Earline 4+3, high-volume. PSA more than 10 e.g. 10.4, As per patient, he was having problem with urination so he was treated with Flomax which was making him weak and also having some dizziness then his medicine was switched to Rapaflo, he is tolerating that reasonably well. As per patient he went [place] [facility] [place], 2021 with lightheadedness and generalized weakness and fatigue, he was diagnosed with urine tract infection and was given a course of antibiotic with Levaquin and then again went back on February 03, 2021 with coughing up some blood and chest x-ray showed right lower lobe pneumonia, at that time his Levaquin was changed to Ceftin, with that his symptoms resolved. Bone scan done on April 03, 2021 shows no evidence of osseous metastatic disease and CT scan of abdomen pelvis done on April 03, 2021 shows no evidence of metastatic disease in the chest abdomen pelvis Came for follow-up, denies any specific complaints, no fever chills, no nausea or vomiting, no diarrhea or constipation, no new bony pains, no dysuria or hematuria Medications: Aspirin 1 Tablet (of 81 mg) Tablet, enteric coated Oral daily, diazePAM 1 (10 mg) Tablet Oral once, Finasteride 1 Tablet (of 5 mg) Oral daily, HYDROcodone-Acetaminophen 1 Tablet (of 5-325 mg) Oral q 4 hours PRN, levoFLOXacin 1 Tablet (of 500 mg) Oral daily, Lisinopril 1 Tablet (of 5 mg) Oral daily, Lovastatin 1 Tablet (of 20 mg) Oral daily, Niacin 1 Tablet (of 500 mg) Oral daily, Omeprazole 1 Capsule (of 20 mg) Capsule Delayed Release Oral b.i.d., Silodosin 1 Capsule (of 8 mg) Oral daily, Sodium Polystyrene Sulfonate 15 g (of 15 g/60mL) Powder Oral daily Allergies: Amoxicillin and Nystatin. Review of Systems: Review of Systems is not available for this patient. Vital Signs: Performed on Apr 20, 2021 13:57 Height - 64.00 in Weight - 130 lbs (LOW) BSA - 1.63 sq.m BMI - 22.31 Temperature - 98.8 F Pulse - 69 /min Respiration - 18 /min BP - 144/69 mm(hg) (HIGH) O2 Sat - 98 % Pain - 0 Fatigue - 0 Performance Status: 0 - Fully active, able to carry on all predisease activities without restrictions. (ECOG) Physical Examination: ENMT - No mouth sores, no thrush, no jaundice, Respiratory - Lungs are clear to auscultation, Cardiovascular - Regular rate and rhythm of heart, Abdomen - Soft, bowel sounds present, Extremities - No visible edema. Lab/Imaging: Most recent lab results are not available for this patient. 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 on February 06, 2021 which showed 6 out of 12 core biopsy positive for [place] 4+3, high-volume, PSA 10.4, abnormal feeling WOODY (lobulated right nodule), T2b, NX intermediate, unfavorable Bone scan done on April 03, 2021 shows no bone mets, CT scan of abdomen pelvis done on April 03, 2021 shows no metastatic disease Plan: Discussed with patient regarding his labs white blood count 7.3 hemoglobin 11.9 hematocrit 37.8 platelets 304,000 CMP within normal limits except creatinine 1.7 and PSA 13.29 Bone scan/CT scan of abdomen pelvis done on April 03, 2021 shows no evidence of metastatic disease Clinically, patient doing well with no new signs suggestive of disease progression his follow-up PSA level shows mild increase from 10.4 at the time of diagnosis now gone up to 13.29 whereas staging work-up with bone scan and CT scan of abdomen pelvis shows no evidence of metastatic disease, patient is intermediate unfavorable risk, now being considered for short course of ADT concurrent with radiation therapy, he will get his first dose of Zoladex today and then return to clinic in 3 months for second final dose and he will see radiation oncology 6 weeks from now and then simulation probably around week 7 and starting concurrent radiation therapy from week 8. We will proceed with his first dose of Zoladex today and return to clinic in 3 months with PSA Signed By: Burak Haile M.D. <<Signature on File>>
== END 2021-04-20 11:53 | disposition home or self-care (01) ==
LOC: ONCMED 11:56
PROVIDERS: PCP Family Medicine; Visit Provider Internal Medicine Hematology & Oncology
DX: C61 Malignant neoplasm of prostate (principal); R97.21 Rising PSA following treatment for malignant neoplasm of prostate; Z79.899 Other long term (current) drug therapy
CPT/HCPCS: 36415; 80053; 84153; 84403; 85025; 96372; 96402; 99215; J9202

== ENCOUNTER 2021-06-01 12:41 | Outpatient (CLI) | payer MEDICARE, OTHER, SELFPAY ==
--- NOTE | 2021-06-01 13:32 | N.ONRAD NP_ITS ---
Radiation Oncology Consultation Patient Name: Ranjan De La Paz Date of : 1940 Date of Service: 06/01/2021 Attending Physician: Bruce Bceerril M.D. Ranjan De La Paz was seen in consultation this afternoon at the request Antwan Lou M.D. for consideration of prostate radiotherapy for the management of a recently diagnosed unfavorable intermediate-risk prostate cancer. He initially was identified to have a PSA level of 15.4 ng/mL in December of 2020. He was evaluated by Antwan Lou M.D. A right prostatic nodule was reported on digital rectal exam. A TRUS biopsy performed on February 06, 2021 identified a 41 cc prostate without suspicious ultrasonographic findings. The pathology report (personally reviewed in [employer]) diagnosed an adenocarcinoma of the prostate gland with a Columbus Score of 4+3 (Grade Group 3) involving 80% of the right lateral apex (1/1 core), 90% of the sample from the right lateral base (1/1 core), 60% of the core from the right base (1/1 core), and 50% of the sample from the right mid gland (3/5 cores). Perineural invasion was described. An adenocarcinoma was also present within the left lateral base and left lateral mid gland with a Columbus Score of 3+3 (Grade Group 1). A nuclear bone scintigraphy and thoracoabdominopelvic CT scan ordered on April 03, 2021 excluded metastatic disease. He was prescribed the first cycle of Zoladex on April 20, 2021 by Burak Haile M.D. The patient was referred for prostate radiotherapy. I discussed with the patient the AJCC clinical stage IIC (T2aN0) unfavorable intermediate risk prostate cancer corresponding to his disease. In accordance to NCCN Guidelines, surgery, external beam radiotherapy with androgen deprivation therapy (6 months), or radiotherapy with brachytherapy (as per the ASCENDE-RT Trial) are treatment options. The patient has elected to proceed with radiotherapy and ADT pharmacotherapy. Upon completion of neoadjuvant GnRH agonist therapy, a 4-week course of radiotherapy will be recommended. A computed tomographic radiotherapy planning scan in the treatment position will be acquired identify the clinical target volume. The potential toxicities of thoracic radiotherapy were addressed. The patient has verbalized understanding would like to proceed as recommended. The patient???s treatment plan was discussed with Ariel Haile M.D. Signed by: Dr. Bruce Becerril 06/01/2021 1:30:51 PM
== END 2021-06-01 12:42 | disposition home or self-care (01) ==
LOC: ONCMED 12:46
PROVIDERS: PCP Family Medicine; Visit Provider Radiology Radiation Oncology
DX: C61 Malignant neoplasm of prostate (principal); Z79.818 Long term (current) use of other agents affecting estrogen receptors and estrogen levels
CPT/HCPCS: 99205

== ENCOUNTER 2021-06-29 07:19 | Outpatient (RCR) | payer MEDICARE, OTHER, SELFPAY ==
--- NOTE | 2021-06-09 | CT_ITS ---
Radiation Therapy Planning CT images; total exam DLP: 452.54 mGy-cm MTDD
--- NOTE | 2021-06-16 09:54 | ONCRAD TMN_ITS ---
Radiation Oncology Treatment Management Note Patient Name: Ranjan De La Paz Date of : 1940 Date of Service: 06/16/2021 Attending Physician: Bruce Becerril M.D. 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 He initially was identified to have a PSA level of 15.4 ng/mL in December of 2020. He was evaluated by Antwan Lou M.D. A right prostatic nodule was reported on digital rectal exam. A TRUS biopsy performed on February 06, 2021 identified a 41 cc prostate without suspicious ultrasonographic findings. The pathology report (personally reviewed in [employer]) diagnosed an adenocarcinoma of the prostate gland with a Cherokee Score of 4+3 (Grade Group 3) involving 80% of the right lateral apex (1/1 core), 90% of the sample from the right lateral base (1/1 core), 60% of the core from the right base (1/1 core), and 50% of the sample from the right mid gland (3/5 cores). Perineural invasion was described. An adenocarcinoma was also present within the left lateral base and left lateral mid gland with a Cherokee Score of 3+3 (Grade Group 1). He was prescribed the first cycle of Zoladex on April 20, 2021 by Burak Haile M.D. The patient has received 6 Gy of a prescribed 60 Valentin to the prostate and seminal vesicles delivered with an intensity modulated radiotherapy plan utilizing a step and shoot treatment technique. Upon review of systems, he denied any genitourinary complaints related to radiotherapy. On physical examination, the patient weighed 134 lbs. His temperature was 97.7 ???F and the blood pressure was 143/83 mmHg. The pulse was 66 bpm and his respiratory rate was 20. There was no erythema within the treatment peters. Continue prostate radiotherapy as prescribed. Signed by: Dr. Bruce Becerril 06/16/2021 9:52:55 AM
--- NOTE | 2021-06-22 08:53 | ONCRAD TMN_ITS ---
Radiation Oncology Treatment Management Note Patient Name: Ranjan De La Paz Date of : 1940 Date of Service: 06/22/2021 Attending Physician: Bruce Becerril M.D. 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 He initially was identified to have a PSA level of 15.4 ng/mL in December of 2020. He was evaluated by Antwan Lou M.D. A right prostatic nodule was reported on digital rectal exam. A TRUS biopsy performed on February 06, 2021 identified a 41 cc prostate without suspicious ultrasonographic findings. The pathology report (personally reviewed in [employer]) diagnosed an adenocarcinoma of the prostate gland with a Cushing Score of 4+3 (Grade Group 3) involving 80% of the right lateral apex (1/1 core), 90% of the sample from the right lateral base (1/1 core), 60% of the core from the right base (1/1 core), and 50% of the sample from the right mid gland (3/5 cores). Perineural invasion was described. An adenocarcinoma was also present within the left lateral base and left lateral mid gland with a Cushing Score of 3+3 (Grade Group 1). He was prescribed the first cycle of Zoladex on April 20, 2021 by Burak Haile M.D. The patient has received 18 Gy of a prescribed 60 Valentin to the prostate and seminal vesicles delivered with an intensity modulated radiotherapy plan utilizing a step and shoot treatment technique. Upon review of systems, he described worsening of his urinary stream. On physical examination, the patient weighed 132 lbs. His temperature was 97.7 ???F and the blood pressure was 131/71 mmHg. The pulse was 90 bpm and his respiratory rate was 20. There was no erythema within the treatment peters. Continue prostate radiotherapy as planned. Increase Flomax to 0.8 mg at bedtime. Signed by: Dr. Bruce Becerril 06/22/2021 8:54:19 AM
--- NOTE | 2021-06-29 08:46 | ONCRAD TMN_ITS ---
Radiation Oncology Treatment Management Note Patient Name: Ranjan De La Paz Date of : 1940 Date of Service: 06/29/2021 Attending Physician: Bruce Becerril M.D. 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 He initially was identified to have a PSA level of 15.4 ng/mL in December of 2020. He was evaluated by Antwan Lou M.D. A right prostatic nodule was reported on digital rectal exam. A TRUS biopsy performed on February 06, 2021 identified a 41 cc prostate without suspicious ultrasonographic findings. The pathology report (personally reviewed in [employer]) diagnosed an adenocarcinoma of the prostate gland with a Huron Score of 4+3 (Grade Group 3) involving 80% of the right lateral apex (1/1 core), 90% of the sample from the right lateral base (1/1 core), 60% of the core from the right base (1/1 core), and 50% of the sample from the right mid gland (3/5 cores). Perineural invasion was described. An adenocarcinoma was also present within the left lateral base and left lateral mid gland with a Huron Score of 3+3 (Grade Group 1). He was prescribed the first cycle of Zoladex on April 20, 2021 by Burak Haile M.D. The patient has received 30 Gy of a prescribed 60 Valentin to the prostate and seminal vesicles delivered with an intensity modulated radiotherapy plan utilizing a step and shoot treatment technique. Upon review of systems, he described improvement of his urinary stream with the increase of Flomax to 0.8mg. On physical examination, the patient weighed 132 lbs. His temperature was 97.7 ???F and the blood pressure was 120/78 mmHg. The pulse was 95 bpm and his respiratory rate was 18. There was no erythema within the treatment peters. Continue prostate radiotherapy as prescribed. Signed by: Dr. Bruce Becerril 06/29/2021 8:43:51 AM
== END 2021-06-29 23:59 | disposition home or self-care (01) ==
LOC: ONCMED 07:19
PROVIDERS: PCP Family Medicine; Visit Provider Radiology Radiation Oncology
DX: Z51.0 Encounter for antineoplastic radiation therapy (principal); C61 Malignant neoplasm of prostate; Z79.899 Other long term (current) drug therapy
CPT/HCPCS: 77300; 77301; 77334; 77338; 77385; 77470

== ENCOUNTER 2021-07-20 06:48 | Outpatient (RCR) | payer MEDICARE, OTHER, SELFPAY ==
--- NOTE | 2021-07-06 08:54 | ONCRAD TMN_ITS ---
Radiation Oncology Treatment Management Note Patient Name: Ranjan De La Paz Date of : 1940 Date of Service: 07/06/2021 Attending Physician: Bruce Becerril M.D. 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 He initially was identified to have a PSA level of 15.4 ng/mL in December of 2020. He was evaluated by Antwan Lou M.D. A right prostatic nodule was reported on digital rectal exam. A TRUS biopsy performed on February 06, 2021 identified a 41 cc prostate without suspicious ultrasonographic findings. The pathology report (personally reviewed in [facility]) diagnosed an adenocarcinoma of the prostate gland with a Irwin Score of 4+3 (Grade Group 3) involving 80% of the right lateral apex (1/1 core), 90% of the sample from the right lateral base (1/1 core), 60% of the core from the right base (1/1 core), and 50% of the sample from the right mid gland (3/5 cores). Perineural invasion was described. An adenocarcinoma was also present within the left lateral base and left lateral mid gland with a Earline Score of 3+3 (Grade Group 1). He was prescribed the first cycle of Zoladex on April 20, 2021 by uBrak Haile M.D. The patient has received 45 Gy of a prescribed 60 Valentin to the prostate and seminal vesicles delivered with an intensity modulated radiotherapy plan utilizing a step and shoot treatment technique. Upon review of systems, he denied lower urinary symptoms. On physical examination, the patient weighed 130 lbs. His temperature was 97.9 ???F and the blood pressure was 109/77 mmHg. The pulse was 87 bpm and his respiratory rate was 16. There was no erythema within the treatment peters. Continue prostate radiotherapy as planned. Signed by: Dr. Bruce Becerril 07/06/2021 8:53:41 AM
--- NOTE | 2021-07-13 09:34 | N.ONRD TS_ITS ---
Radiation Oncology Treatment Summary Patient: Brain>Ranjan> MR#: [id number] : 1940> Age: 80> Sex: Male Dictated by: Dr. Johnny Bhatti Date of Service: 07/13/2021 Referring Physician(s) : Burak Haile M.D. Diagnosis: C61 - Malignant neoplasm of prostate, Diagnosed 02/06/2021 (Active) Stage IIC, T2a, N0, M0, P>=10<20, G3 Radiotherapy to Date: Course: Prostate 2021 Treatment Site: Prostate Ca - Unfavorable Intermediate-Risk, Ref. ID: [id number], Energy: 15X, Dose/Fx (cGy): 300, #Fx: 20 / 20, Dose Correction (cGy): 0, Total Dose (cGy): 6,000, Start Date: 06/15/2021, End Date: 07/13/2021,Elapsed Days: 28 Clinical Summary: The patient tolerated RT well. Mr. De La Paz experienced mild fatigue. As treatment progressed he noticed some hesitancy, weaker stream, and more difficulty emptying. His Flomax was increased to 2 in the evening with some improvement in symptoms. He states that he developed diarrhea early in treatment. That responded well to Imodium A-D. About 1 week into treatment he noticed a discoloration of his stools. He said they were greenish in appearance. His stools have been less frequent and smaller during the last couple of weeks of treatment. He has not had any diarrhea. His stools have not been black and tarry. I offered to get a CBC if he were concerned. After a significant level of discussion, we decided not to get a CBC today. He was told he could take milk of magnesia if he becomes constipated. If he remains concerned about the stools, he will check with his family physician. Plan: End of treatment today. Continue Flomax until bladder symptoms improve. He will check with his family physician if he remains concerned about the character of his bowel movements. 3. Follow up in one month. Signed by: Dr. Johnny Bhatti>07/13/2021 9:32:46 AM <<Signature on File>>
[2021-07-20 14:16] LABS: Prostate Specific Antigen 0.635 ng/mL (0-4)
[2021-07-20] MEDS: lidocaine 1% INJ 20 mL INJECTION (15:28)
[2021-07-20] MEDS: goserelin acetate 10.8 mg Implant SUBCUT (15:40)
--- NOTE | 2021-07-20 16:11 | ONC FU_ITS ---
Loulou Hodge Progress Note Patient: Ranjan De La Paz Unit #: [id number]: 1940 Dicatated By: Loulou Hodge N.P.Date of Visit:Jul 20, 2021 Onc MED Follow-up/Prog Note Chief Complaint: Prostate cancer History of Present Illness: Ranjan De La Paz, is a 80-year-old gentleman with a history of elevated PSA and dysuria, was evaluated by urology on January 20, 2021, at that time he underwent WOODY which confirmed lobulated right nodule, subsequently patient underwent TRUSP/biopsy on February 06, 2021 which confirmed prostatic adenocarcinoma, as 6 out of 12 core biopsy were positive with Earline 4+3, high-volume. PSA more than 10 e.g. 10.4, As per patient, he was having problem with urination so he was treated with Flomax which was making him weak and also having some dizziness then his medicine was switched to Rapaflo, he is tolerating that reasonably well. As per patient he went to [facility] on January 30, 2021 with lightheadedness and generalized weakness and fatigue, he was diagnosed with urine tract infection and was given a course of antibiotic with Levaquin and then again went back on February 03, 2021 with coughing up some blood and chest x-ray showed right lower lobe pneumonia, at that time his Levaquin was changed to Ceftin, with that his symptoms resolved. Bone scan done on April 03, 2021 shows no evidence of osseous metastatic disease and CT scan of abdomen pelvis done on April 03, 2021 shows no evidence of metastatic disease in the chest abdomen pelvis Patient presents today for follow-up. He has some mild fatigue. His appetite is good. No fever or chills. He does have hot flashes quite often. He denies sinus drainage or mouth sores. No cough or chest pain. He denies nausea or vomiting. No diarrhea or constipation. No urinary symptoms. He denies joint or bone pain. No headaches or dizziness. He presents today for his Zoladex injection. Review Of Symptoms: See above. Past Medical History: Bph Past Surgical History: Prostae biopsy Allergies: Amoxicillin and Nystatin. Medications: Aspirin 1 Tablet (of 81 mg) Tablet, enteric coated Oral daily diazePAM 1 (10 mg) Tablet Oral once Finasteride 1 Tablet (of 5 mg) Oral daily HYDROcodone-Acetaminophen 1 Tablet (of 5-325 mg) Oral q 4 hours PRN Lovastatin 1 Tablet (of 20 mg) Oral daily Niacin 1 Tablet (of 500 mg) Oral daily Omeprazole 1 Capsule (of 20 mg) Capsule Delayed Release Oral b.i.d. Silodosin 1 Capsule (of 8 mg) Oral daily Family History: Mr. De La Paz's mother at age 83: aneurysm. Mr. De La Paz's father at age 77: myocardial infarction. Social History: Mr. De La Paz is . Mr. De La Paz has never smoked. He has no history of drinking. Physical Examination: Performed on Jul 20, 2021 15:34: Height - 64.00 in, BP - 141/83 mm(hg) (HIGH), Performed on Jul 20, 2021 15:34: Height - 64.00 in, Weight - 134.4 lbs (HIGH), BSA - 1.65 sq.m, BMI - 23.07, Temperature - 97.7 F (LOW), Pulse - 78 /min, Respiration - 16 /min, BP - 153/78 mm(hg) (HIGH), O2 Sat - 97 %, Pain - 0, and Fatigue - 5. Performance Status: 0 - Fully active, able to carry on all predisease activities without restrictions. (ECOG) Constitutional Alert, cooperative, oriented. Mood and affect appropriate. Appears close to chronological age. Well nourished. Well developed. Head Normocephalic; no scars. Respiratory Lungs are clear to auscultation without rhonchi or wheezing. Cardiovascular Regular rate and rhythm of heart without murmurs, gallops or rubs. Abdomen Non-tender, non-distended, no masses, ascites or hepatosplenomegaly. Good bowel sounds. No guarding or rebound tenderness. Extremities no edema Psychiatric Alert and oriented times three. Coherent speech. Verbalizes understanding of our discussions today. Laboratory: Test performed on Jul 20, 2021 13:00 PSA 0.635 ng/mL 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 on February 06, 2021 which showed 6 out of 12 core biopsy positive for Earline 4+3, high-volume, PSA 10.4, abnormal feeling WOODY (lobulated right nodule), T2b, NX intermediate, unfavorable Bone scan done on April 03, 2021 shows no bone mets, CT scan of abdomen pelvis done on April 03, 2021 shows no metastatic disease Plan: Discussed with patient regarding his labs white blood count 7.3 hemoglobin 11.9 hematocrit 37.8 platelets 304,000 CMP within normal limits except creatinine 1.7 and PSA 13.29 Bone scan/CT scan of abdomen pelvis done on April 03, 2021 shows no evidence of metastatic disease Clinically patient doing well. His Zoladex is causing hot flashes which bother him. His PSA today was 0.635. The plan was for him to have 2 Zoladex injections and he had one in April and he should have a second 1 today and then those will be discontinued. He will return to the clinic in 3 months with CBC, CMP, PSA. Signed By: Loulou Hodge N.P. <<Signature on File>>
[2021-07-24 21:29] LABS: Testosterone, Free 0.3 pg/mL (6.0-73.0)
== END 2021-07-30 23:59 | disposition home or self-care (01) ==
LOC: ONCMED 06:48
PROVIDERS: PCP Family Medicine; Visit Provider Nurse Practitioner Family
DX: Z51.0 Encounter for antineoplastic radiation therapy (principal); C61 Malignant neoplasm of prostate; Z79.818 Long term (current) use of other agents affecting estrogen receptors and estrogen levels
CPT/HCPCS: 36415; 77014; 77336; 77385; 84153; 84402; 96372; 96402; 99215; J9202

== ENCOUNTER 2021-12-10 13:16 | Outpatient (CLI) | payer MEDICARE, OTHER, SELFPAY ==
[2021-12-10 13:41] LABS: Basophils % 0.6 %; Eosinophils # 0.3 10^3/uL (0.0-0.8); Eosinophils % 4.1 %; Hematocrit 35.8 % (42.0-52.0); Hemoglobin 11.2 g/dL (11.7-16.6); Lymphocytes # 1.3 10^3/uL (0.8-4.8); Lymphocytes % 17.7 %; Mean Corpuscular HGB Conc 31.3 g/dL (30.0-36.0); Mean Corpuscular Hemoglobin 30.4 pg (28.0-34.0); Mean Corpuscular Volume 97.3 fl (80-94); Mean Platelet Volume 9.4 fL (7.4-10.4); Monocytes # 0.6 10^3/uL (0.2-0.9); Monocytes % 8.2 %; Neutrophils # 4.86 10^3/uL (1.8-7.7); Nucleated Red Blood Cells % 0 %; Platelet Count 250 10^3/cmm (130-400); Red Blood Count 3.68 10^6/uL (4.1-5.3); Red Cell Distribution Width 12.3 % (12.1-15.1); White Blood Count 7.1 10^3/uL (4.0-10.0)
[2021-12-10 14:11] LABS: Alanine Aminotransferase 12 U/L (0-41); Albumin Level 4.2 g/dL (3.5-5.2); Alkaline Phosphatase 76 IU/L (40-130); Aspartate Amino Transferase 21 U/L (0-40); Chloride 105 mmol/L (98-107); Potassium 4.5 mmol/L (3.5-5.1); Prostate Specific Antigen 0.089 ng/mL (0-4); Sodium 142 mmol/L (136-145)
[2021-12-10 14:23] LABS: Anion Gap 15.5 (5-19); Blood Urea Nitrogen 25 mg/dL (8-23); Calcium 9.2 mg/dL (8.5-10.5); Carbon Dioxide 26 mmol/L (22-29); Glucose 139 mg/dL (65-115); Osmolality Calculated 301 mOsm/kg (285-295); Total Bilirubin 0.2 mg/dL (0.15-1.2); Total Protein 7.2 g/dL (6.6-8.7)
== END 2021-12-10 13:17 | disposition home or self-care (01) ==
LOC: LAB 13:18
PROVIDERS: PCP Family Medicine; Visit Provider Nurse Practitioner Family
DX: C61 Malignant neoplasm of prostate (principal)
CPT/HCPCS: 36415; 80053; 84153; 85025

== ENCOUNTER 2021-12-16 11:00 | Oncology outpatient (recurring) (ONCR) | payer MEDICARE, OTHER, SELFPAY | END 2021-12-30 23:59 | disposition home or self-care (01) | PROVIDERS: PCP Family Medicine; Visit Provider Internal Medicine Hematology & Oncology | DX: Z53.9 Procedure and treatment not carried out, unspecified reason (principal) | CPT/HCPCS: 99214; G0463 ==

== ENCOUNTER 2022-02-08 16:35 | Outpatient (CLI) | payer MEDICARE, OTHER, SELFPAY ==
[2022-02-08 17:50] LABS: Prostate Specific AG Urology 0.05 ng/mL (0-4)
== END 2022-02-08 16:36 | disposition home or self-care (01) ==
LOC: LAB 16:39
PROVIDERS: PCP Family Medicine; Visit Provider Urology
DX: R97.20 Elevated prostate specific antigen [PSA] (principal)
CPT/HCPCS: 36415; 84153

== ENCOUNTER → 2022-02-09 08:44 | Outpatient (BNVA) | payer MEDICARE, OTHER, SELFPAY | PROVIDERS: PCP Family Medicine; Visit Provider Urology | DX: N40.1 Benign prostatic hyperplasia with lower urinary tract symptoms (principal); C61 Malignant neoplasm of prostate | CPT/HCPCS: 51741; 51798; 81003; 99213 ==

== ENCOUNTER → 2022-03-13 10:28 | Outpatient (BNVA) | payer MEDICARE, OTHER, SELFPAY | PROVIDERS: PCP Family Medicine; Visit Provider Registered Nurse Neonatal Intensive Care | DX: M79.672 Pain in left foot (principal) | CPT/HCPCS: 73630 ==

== ENCOUNTER → 2022-03-16 14:46 | Outpatient (BNVA) | payer MEDICARE, OTHER, SELFPAY | PROVIDERS: PCP Family Medicine; Visit Provider Podiatrist Foot & Ankle Surgery | DX: S92.322A Displaced fracture of second metatarsal bone, left foot, initial encounter for closed fracture (principal); W23.0XXA Caught, crushed, jammed, or pinched between moving objects, initial encounter | CPT/HCPCS: 73630 ==

== ENCOUNTER 2022-03-16 16:04 | Outpatient (CLI) | payer MEDICARE, OTHER, SELFPAY | END 2022-03-16 16:05 | disposition home or self-care (01) | LOC: SPT 16:06 | PROVIDERS: PCP Family Medicine; Visit Provider Podiatrist Foot & Ankle Surgery | DX: Z46.89 Encounter for fitting and adjustment of other specified devices (principal); S92.322A Displaced fracture of second metatarsal bone, left foot, initial encounter for closed fracture; W23.0XXA Caught, crushed, jammed, or pinched between moving objects, initial encounter | CPT/HCPCS: 28475; 73630; 99204; L4361 ==

== ENCOUNTER → 2022-04-07 12:52 | Outpatient (BNVA) | payer MEDICARE, OTHER, SELFPAY | PROVIDERS: PCP Family Medicine; Visit Provider Podiatrist Foot & Ankle Surgery | DX: S92.322D Displaced fracture of second metatarsal bone, left foot, subsequent encounter for fracture with routine healing (principal); S92.332A Displaced fracture of third metatarsal bone, left foot, initial encounter for closed fracture; W23.0XXA Caught, crushed, jammed, or pinched between moving objects, initial encounter | CPT/HCPCS: 73630; 99214 ==

== ENCOUNTER → 2022-04-21 07:46 | Outpatient (BNVA) | payer MEDICARE, OTHER, SELFPAY | PROVIDERS: PCP Family Medicine; Visit Provider Podiatrist Foot & Ankle Surgery | DX: S92.325D Nondisplaced fracture of second metatarsal bone, left foot, subsequent encounter for fracture with routine healing (principal); S92.335D Nondisplaced fracture of third metatarsal bone, left foot, subsequent encounter for fracture with routine healing; X58.XXXD Exposure to other specified factors, subsequent encounter | CPT/HCPCS: 73630; 99214 ==

== ENCOUNTER 2022-08-04 09:57 | Outpatient (CLI) | payer MEDICARE, OTHER, SELFPAY ==
[2022-08-04 11:16] LABS: Prostate Specific AG Urology 0.19 ng/mL (0-4)
== END 2022-08-04 09:58 | disposition home or self-care (01) ==
LOC: LAB 10:07
PROVIDERS: PCP Family Medicine; Visit Provider Urology
DX: R97.20 Elevated prostate specific antigen [PSA] (principal)
CPT/HCPCS: 36416; 84153

== ENCOUNTER → 2022-08-10 07:50 | Outpatient (BNVA) | payer MEDICARE, OTHER, SELFPAY | PROVIDERS: PCP Family Medicine; Visit Provider Urology | DX: N40.1 Benign prostatic hyperplasia with lower urinary tract symptoms (principal); C61 Malignant neoplasm of prostate; N13.8 Other obstructive and reflux uropathy | CPT/HCPCS: 51798; 81003; 99213 ==

== ENCOUNTER 2022-11-03 07:13 | Outpatient (CLI) | payer MEDICARE, OTHER, SELFPAY ==
--- NOTE | 2022-11-03 | ECG_ITS ---
[facility] Test Date: 2022-11-03 Pat Name: Ranjan De La Paz Department: Room: Gender: Male [employer] Worker: : 1940 Requested By: Vania Hassan Order Number: [id number] Allison MD: Nasim Ortega M.D. Interpretive Statements NAME OF STUDY: EXERCISE SESTAMIBI STRESS TEST INDICATION: Chest Pain RESULTS TO Mihir CONROY MD PROCEDURE: The baseline electrocardiogram showed normal sinus rhythm with normal ST-Ts. At the baseline, the patient's blood pressure was 165/75 mm Hg with a heart rate of 114. The patient exercised for 6 minutes on a standard Dony protocol. Patient attained a maximum heart rate of 129 beats per minute(92% of the maximum predicted heart rate) with a blood pressure at the peak exercise of 157/73 mm Hg. The EKG at the peak exercise revealed no significant changes. Patient did not have any chest pain or any significant arrhythmis with the exercise Sestamibi was injected 1 minute prior to the peak exercise During the recovery phase, there were no new changes. Blood pressure at the end of the recovery phase was 127/88 mm Hg with a heart rate of 75 per minute. CONCLUSION: 1. No significant EKG changes with the treadmill exercise 2. No exercise-induced chest pain or cardiac arrhythmia 3. Impaired exercise tolerance, attained a maximum of 7.0 METs 4. Sestamibi/Sestamibi perfusion results pending; see separate report. Electronically Signed On 11-04-2022 17:53:04 CDT by Nasim Ortega M.D. [id number]
[2022-11-03 07:18] VITALS: BMI 24.6
--- NOTE | 2022-11-03 07:22 | NMCV_ITS ---
NM christian perf SPECT r/s* [id number] Ranjan De La Paz Age: 81 Gender: M : 1940 Exam Date: 11/03/2022 07:59 Ordering Phys: Vania Acharya MD Technologist: RINA Reed Exam Location: [facility] Indications: Chest Pain STRESS TEST Please see separate stress test report in [facility] for full findings IMAGE PROTOCOL Rest/Stress 1 Exercise Day Radiopharmaceutical Dose (mCi) Administration Site Administered by Rest: Tc-99m 10.8 IV RINA Reed Sestamibi Stress:Tc-99m 32.9 IV RINA Jeffrey Sestamibi Rest: 03-Nov-2022 30 Discovery 630 Stress: 03-Nov-2022 60 Discovery 630 Radiopharmaceutical was injected at 89 % maximum heart rate. Images obtained in supine and prone position. SPECT RESULTS Technical Quality: Excellent Raw Data Analysis: Normal Image Corrections: No attenuation or motion correction applied Summed Stress Score: 0 Summed Rest Score: 0 Summed Difference Score: 0 PERFUSION FINDINGS Uniform myocardial tracer uptake with no significant perfusion abnormalities FUNCTIONAL RESULTS (calculated via Gated SPECT) Stress Image LV EF (%): 68 Stress EDV (mL):72 TID: 0.94 Stress ESV (mL):23 FUNCTIONAL FINDINGS: Segmental wall motion analysis revealing no gross wall motion normalities IMPRESSIONS 1. Unremarkable Myocardial perfusion imaging 2. Normal LV ejection fraction of 60%. 3. LV wall motion analysis revealing no gross wall motion abnormalities. 4. Normal LV volume No similar previous studies are available for comparison Low probability for coronary ischemia, based on the above findings Dr Nasim Ortega MD FACC (Electronically Signed) Final Date: 03 November 2022 17:40 S
[2022-11-03 09:21] VITALS: BP 188/92; PULSE 68
== END 2022-11-03 07:14 | disposition home or self-care (01) ==
LOC: CDL 07:14
PROVIDERS: PCP Family Medicine; Visit Provider Family Medicine
DX: R07.9 Chest pain, unspecified (principal)
CPT/HCPCS: 36415; 78452; 93017; 96374; A9500

== ENCOUNTER → 2022-12-23 08:26 | Outpatient (BNVA) | payer MEDICARE, OTHER, SELFPAY | PROVIDERS: PCP Family Medicine; Visit Provider Podiatrist Foot & Ankle Surgery | DX: L60.0 Ingrowing nail (principal) | CPT/HCPCS: 11730 ==

== ENCOUNTER → 2023-01-25 08:03 | Outpatient (BNVA) | payer MEDICARE, OTHER, SELFPAY | PROVIDERS: PCP Family Medicine; Visit Provider Surgery | DX: K92.1 Melena (principal) | CPT/HCPCS: 99204 ==

== ENCOUNTER 2024-06-23 05:47 | Emergency (ER) | payer MEDICARE, OTHER, SELFPAY ==
[2024-06-23] VITALS (9 sets, daily range): BP systolic 138–178; BP diastolic 76–99; PULSE 60–87; RESP 8–21; TEMP 36.6; O2SAT 94–98; BMI 24.7
--- NOTE | 2024-06-23 05:52 | ECG_ITS ---
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
--- NOTE | 2024-06-23 05:56 | XRR_ITS ---
PROCEDURE INFORMATION: Exam: XR Chest Exam date and time: 06/23/2024 6:01 AM Age: 83 years old Clinical indication: Chest pressure; C/O chest pain TECHNIQUE: Imaging protocol: Radiologic exam of the chest. Views: 1 view. COMPARISON: CT chest abdpel w/*[id number] 04/03/2021 9:57 AM FINDINGS: Tubes, catheters and devices: Mild cardiomegaly and a coil of the thoracic aorta. Lungs: Vascular and interstitial prominence is accentuated by the poor inspiratory effort obtained. Possible mild infiltrate at the lung bases laterally. Pleural spaces: Unremarkable. No pleural effusion. No pneumothorax. Heart/Mediastinum: Unremarkable. No cardiomegaly. Bones/joints: Unremarkable. XR/XR chest 1V portable [id number] IMPRESSION: 1. Poor inspiratory effort. 2. Possible cardiac decompensation. 3. Mild bibasilar opacities.
--- NOTE | 2024-06-23 06:18 | ED_ITS ---
HPI - Chest Pain 2 General: Chief Complaint: Chest Pain Stated Complaint: Light Chest Pain Time Seen by Provider: 06/23/24 06:16 History of Present Illness: 83-year-old male presents emergency room complaining of right-sided chest pain. He was going down some stairs last night is a basketball game evidently began having chest discomfort was very brief. It is intermittently been heavy into this morning. It has not been as bad as what he had last night. He is not noticed anything that exacerbate or relieves it. Localizes the pain just to the right of the upper sternum. No associated diaphoresis dyspnea. No nausea or vomiting. Patient has no history of any cardiac arrhythmias or coronary artery disease no previous MT angiography or stenting. Associated symptoms: Deny abdominal pain, dyspnea or fever(s) Related Data Home Medications ?Medication ?Instructions ?Recorded ?Confirmed lovastatin 20 mg tablet 20 mg PO DAILY 12/30/2006/03 omeprazole 20 mg capsule,delayed 20 mg PO BID 12/30/20 06/23/24 release aspirin 81 mg tablet,delayed 81 mg PO DAILY 02/06/21 0 06/23/24 release gabapentin 300 mg capsule 300 mg PO ONCE 12/23/2206/03 cholecalciferol (vitamin D3) 125 125 mcg PO DAILY 06/0306/23/24 mcg (5,000 unit) tablet (Vitamin D3) hydrocodone 5 mg-acetaminophen 325 1 tab PO Q4H PRN Pa in 06/23/24 06/23/24 mg tablet mecobalamin (vitamin B12) 1,000 1,000 mcg PO DAILY 06/23/24 mcg chewable tablet (B12 Active) Previous Rx's ?Medication ?Instructions ?Recorded cam boot to left #1 ea 03/16/22 tamsulosin 0.4 mg capsule 0.4 mg PO DAILY #90 caps 03/24 Allergies Allergy/AdvReac Type Severity Reaction Status Date / Time amoxicillin Allergy ITCHING Verified 01/25/23 08:35 nystatin (From Bio-Statin) Allergy Unknown Verified 01/25/23 08:35 Review of Systems 2 Const: Denies: fever(s) or chills Card: Reports: chest pain Resp: Denies: dyspnea GI: Denies: abdominal pain : Denies: dysuria, urinary frequency or urinary urgency Musc: Denies: neck pain or back pain Skin/Breast: Denies: rash PFSH ED 2 PFSH: Medical History BPH loc w urin obs/LUTS Family History Father , AT AGE 77 Heart attack Mother , AT AGE 83 Aneurysm Denies family history of Diabetes CAD (coronary artery disease) Clotting disorder Dementia Hyperlipidemia Psychiatric illness Chronic kidney disease (CKD) Suicide Anesthesia complication Bleeding disorder Lung disease Cancer Hypertension Stroke Social History Smoking and tobacco/nicotine status: never used tobacco/nicotine Alcohol intake: never Substance/Drug Use: never Marital status: Current occupational status: retired Physical Exam 2 Const: GENERAL APPEARANCE: cooperative ORIENTATION/CONSCIOUSNESS: Yes awake, Yes oriented to person, Yes oriented to place and Yes oriented to time HENMT: COMMON NORMALS: normocephalic, atraumatic and hearing grossly normal bilaterally HEAD & SCALP: normocephalic and atraumatic Resp: COMMON NORMALS: normal respiratory effort, No retractions, No use of accessory muscles and clear to auscultation bilaterally AUSCULTATION: clear to auscultation bilaterally Cardio: COMMON NORMALS: regular rate, regular rhythm and No murmurs present (Cardio) RATE: regular rate RHYTHM: regular rhythm GI: COMMON NORMALS: Soft to palpation and No hepatosplenomegaly present A USCULTATION: Yes normoactive bowel sounds PALPATION: Yes Soft to palpation, No Tenderness to palpation present (GI), No Guarding due to palpation present (GI) and Yes No hepatosplenomegaly present Extremity: COMMON NORMALS: normal to inspection, capillary refill normal, no clubbing, cyanosis or edema, no calf tenderness and no pedal edema Neuro: SENSORIUM/ORIENTATION: Yes oriented to person, Yes oriented to place and Yes oriented to time Skin: COMMON NORMALS: no rashes or lesions noted GENERAL SKIN EXAM: no rashes or lesions noted Course 2 Vital Signs: Vital signs: Vital Signs Temperature 98 F 06/23/24 05:49 Pulse Rate 65 06/23/24 15:01 Respiratory Rate 13 06/23/24 13:30 Blood Pressure 138/84 06/23/24 15:01 Pulse Oximetry 98 06/23/24 15:01 Oxygen Delivery Me thod Room Air 06/23/24 11:54 MDM - Chest Pain Medical Decision Making Patient initially presented for atypical chest pain his potassium was elevated we treated it and then rechecked it actually gone. Bradycardia and peaked T waves. Treated more aggressively and recheck after a few hours his potassium has normalized he is feeling better. He does not take any potassium supplement he is not on any drugs that would cause retention of potassium. His kidney function is about at his baseline. Troponins and EKGs did not show any signs of acute coronary syndrome. We discussed possibly being admitted however due to lack of available beds we treated him in the emergency room as it is resolved he would prefer to go home we will discharge him home he is no follow-up with his primary care doctor in 2 days for a repeat potassium. If he has any worsening or change symptoms or recurrence of symptoms return to the emergency room Medical Records I reviewed the patient's medical records. Lab Data I reviewed the patient's lab results. 06/23/24 06:09 06/23/24 12:43 Radiology Impressions Chest X-Ray 06/23/24 05:56 IMPRESSION: 1. Poor inspiratory effort. 2. Possible cardiac decompensation. 3. Mild bibasilar opacities. Laboratory Results WBC 6.90 10^3/uL (3.29-11.43) 06/23/24 06:09 RBC 3.93 10^6/uL (3.85-5.65) 06/23/24 06:09 Hgb 12.10 g/dL (11.27-16.99) 06/23/24 06:09 Hct 38.8 % (37-53) 06/23/24 06:09 MCV 98.7 fl (82-101) 06/23/24 06:09 MCH 30.8 pg (27-33) 06/23/24 06:09 MCHC 31.2 g/dL (30-55) 06/23/24 06:09 RDW 12.3 % (12.1-15.1) 06/23/24 06:09 Plt Count 230 10^3/cmm (157-399) 06/23/24 06:09 MPV 9.0 fL (7.4-10.4) 06/23/24 06:09 Neut % (Auto) 57.7 % 06/23/24 06:09 Lymph % (Auto) 25.8 % 06/23/24 06:09 Carson % (Auto) 9.1 % 06/23/24 06:09 Eos % (Auto) 6.1 % 06/23/24 06:09 Baso % (Auto) 0.6 % 06/23/24 06:09 Neut # (Auto) 3.98 10^3/uL (1.8-7.7) 06/23/24 06:09 Lymph # (Auto) 1.8 10^3/uL (0.8-4.8) 06/23/24 06:09 Carson # (Auto) 0.6 10^3/uL (0.2-0.9) 06/23/24 06:09 Eos # (Auto) 0.4 10^3/uL (0.0-0.8) 06/23/24 06:09 Baso # (Auto) 0.0 10^3/uL (0.0-0.1) 06/23/24 06:09 Nucleated RBC % (auto) 0 % 06/23/24 06:09 Nucleated RBCs # 0.0 /100WBC 06/23/24 06:09 PT 18.80 SECONDS (12.1-14.9) H 06/23/24 06:09 INR 1.48 (0.8-1.2) H 06/23/24 06:09 Sodium 140 mmol/L (136-145) 06/23/24 06:09 Potassium 5.0 mmol/L (3.5-5.1) 06/23/24 12:43 Chloride 112 mmol/L (98-107) H 06/23/24 06:09 Carbon Dioxide 19 mmol/L (22-29) L 06/23/24 06:09 Anion Gap 14.6 (5-19) 06/23/24 06:09 BUN 22 mg/dL (8-23) 06/23/24 06:09 Creatinine 1.6 mg/dL (0.7-1.2) H 06/23/24 06:09 GFR Calculation Not Reportable 06/23/24 06:09 Glucose 116 mg/dL (65-115) H 06/23/24 06:09 POC Glucose 93 mg/dL (70-110) 06/23/24 13:01 Calculated Osmolality 294 mOsm/kg (285-295) 06/23/24 06:09 Calcium 9.0 mg/dL (8.5-10.5) 06/23/24 06:09 Magnesium 1.6 mg/dL (1.7-2.3) L 06/23/24 08:11 Total Bilirubin 0.3 mg/dL (0.15-1.2) 06/23/24 06:09 AST 16 U/L (0-40) 06/23/24 06:09 ALT 10 U/L (0-41) 06/23/24 06:09 Alkaline Phosphatase 111 U/L (40-130) 06/23/24 06:09 Troponin T Baseline 26 ng/L (0-15) H 06/23/24 06:09 Troponin T 120 Minute 24.42 ng/L (0-15) H 06/23/24 08:11 Delta Troponin T -1.58 ABS# (0-10) L 06/23/24 08:11 Troponin T Hi Sens 6Hr 22.19 ng/L (0-15) H 06/23/24 12:12 Troponin T Hi Sens 6Hr Delta -3.81 ng/L (0-12) L 06/23/24 12:12 Total Protein 7.1 g/dL (6.6-8.7) 06/23/24 06:09 Albumin 4.1 g/dL (3.5-5.2) 06/23/24 06:09 Globulin 3.0 g/dL (1.3-4.6) 06/23/24 06:09 All radiology interpretation(s) finalized by discharge EKG Data EKG 1: Interpretation: June 23, 2024 5:22 AM EKG shows a normal sinus rhythm with a rate of [address] changes are noted. Low voltage noted on the EKG. KS interval 146 QT 357. Discharge Plan Discharge Patient Disposition: Home Clinical Impression: Hyperkalemia, Atypical chest pain Condition: Stable Prescriptions: No Action lovastatin 20 mg tablet 20 mg PO DAILY omeprazole 20 mg capsule,delayed release(DR/EC) 20 mg PO BID aspirin 81 mg tablet,delayed release (DR/EC) 81 mg PO DAILY (DME) cam boot to left See Rx Instructions .Route .MEDSUPPLY Qty: 1 0RF Rx Instructions: As directed gabapentin 300 mg capsule 300 mg PO ONCE tamsulosin 0.4 mg capsule 0.4 mg PO DAILY Qty: 90 3RF hydrocodone-acetaminophen 5-325 mg tablet 1 tab PO Q4H PRN (Reason: Pain) cholecalciferol (vitamin D3) [Vitamin D3] 125 mcg (5,000 unit) Tablet 125 mcg PO DAILY mecobalamin (vitamin B12) [B12 Active] 1,000 mcg Tablet,Chewable 1,000 mcg PO DAILY Discharge Orders: Discharge ED (Routine); Ordered 06/23/24 Ordered By: Cj Urias Referrals: Vania Acharya MD [Primary Care Provider] - Discharge Diet: Usual diet Discharge Activity: Increase activity as tolerated Patient Instructions: Opioid Safety, Pain Management Activity Restrictions/Additional Instructions: Thank you for choosing [facility] for your healthcare needs today. It is very important that you follow up as instructed or that you return to the Emergency Department should you have concerns or if your condition changes or worsens in any way. You are seen in the emergency room with complaints of chest discomfort in the course of the workup you are noted to have elevated potassium. You were given multiple medications to relieve resolve this it did come down. Your heart rhythm and EKG normalized. He will be discharged home and recommend that you follow-up in 2 days with your primary care doctor to have your potassium rechecked. Print Language: Thai Coding Level of Care Code ED Director Pharmacy Services for Madeline Rodriges
[2024-06-23 06:21] LABS: Basophils % 0.6 %; Eosinophils # 0.4 10^3/uL (0.0-0.8); Eosinophils % 6.1 %; Hematocrit 38.8 % (37-53); Lymphocytes # 1.8 10^3/uL (0.8-4.8); Lymphocytes % 25.8 %; Mean Corpuscular HGB Conc 31.2 g/dL (30-55); Mean Corpuscular Hemoglobin 30.8 pg (27-33); Mean Corpuscular Volume 98.7 fl (82-101); Monocytes # 0.6 10^3/uL (0.2-0.9); Monocytes % 9.1 %; Neutrophils # 3.98 10^3/uL (1.8-7.7); Neutrophils % 57.7 %; Nucleated Red Blood Cells % 0 %; Platelet Count 230 10^3/cmm (157-399); Red Blood Count 3.93 10^6/uL (3.85-5.65); Red Cell Distribution Width 12.3 % (12.1-15.1)
[2024-06-23 06:49] LABS: Alanine Aminotransferase 10 U/L (0-41); Albumin Level 4.1 g/dL (3.5-5.2); Alkaline Phosphatase 111 U/L (40-130); Blood Urea Nitrogen 22 mg/dL (8-23); Carbon Dioxide 19 mmol/L (22-29); Chloride 112 mmol/L (98-107); Glucose 116 mg/dL (65-115); Osmolality Calculated 294 mOsm/kg (285-295); Sodium 140 mmol/L (136-145); Total Bilirubin 0.3 mg/dL (0.15-1.2); Total Protein 7.1 g/dL (6.6-8.7)
[2024-06-23 06:50] LABS: Creatinine Clr Calc Pharmacy 29.9773
[2024-06-23 06:51] LABS: Anion Gap 14.6 (5-19); Aspartate Amino Transferase 16 U/L (0-40); Potassium 5.6 mmol/L (3.5-5.1); Troponin(5th) Baseline 26 ng/L (0-15)
[2024-06-23 06:55] LABS: INR 1.48 (0.8-1.2)
[2024-06-23] MEDS: calcium chloride 10% Syr 10 mL 1 GM IVP ×2 (07:33→10:10)
[2024-06-23] MEDS: sodium polystyrene sulfonate 15 gm/60 mL Btl PO (07:34)
--- NOTE | 2024-06-23 07:55 | ECG_ITS ---
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
[2024-06-23 08:37] LABS: Troponin 5 2HR 24.42 ng/L (0-15)
[2024-06-23 08:40] LABS: Troponin 5 2HR Delta -1.58 ABS# (0-10)
[2024-06-23] MEDS: albuterol 2.5 mg/3 mL Neb 10 MG INHALATION (09:30)
[2024-06-23 09:36] LABS: Magnesium 1.6 mg/dL (1.7-2.3)
--- NOTE | 2024-06-23 10:10 | PC.NURSE ---
glucose 98 via FS, pharmacy to bring dextrose/bicarb medication; holding 10 units insulin until dextrose admin pt denies hx of diabetes
[2024-06-23 10:11] LABS: Glucose Point of Care 98 mg/dL (70-110)
[2024-06-23] MEDS: sodium bicarbonate 8.4% syr 150 MEQ in dextrose 5% 200 ML 700 MEQ IV (10:30)
[2024-06-23] MEDS: insulin regular-human 100 units/1 mL 10 UNIT IVP (11:24)
[2024-06-23 11:25] LABS: Glucose Point of Care 140 mg/dL (70-110)
--- NOTE | 2024-06-23 11:53 | ECG_ITS ---
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 ([email or web address] va medical centerVerisante Technologyaultman alliance community [id number]
[2024-06-23 12:34] LABS: Glucose Point of Care 73 mg/dL (70-110)
[2024-06-23 12:35] LABS: Troponin 5 6HR 22.19 ng/L (0-15)
[2024-06-23 12:36] LABS: Troponin 5 6HR Delta -3.81 ng/L (0-12)
--- NOTE | 2024-06-23 12:43 | PC.NURSE ---
pt provided with orange juice and pudding, glucose 76 after 10 units insulin admin; Dr. Urias notified, verbal orders to recheck in 20min
[2024-06-23 13:05] LABS: Glucose Point of Care 93 mg/dL (70-110)
== END 2024-06-23 15:03 | disposition home or self-care (01) ==
PROVIDERS: Emergency Medicine; Emergency Provider Family Medicine; PCP Family Medicine
DX: E87.5 Hyperkalemia (principal); R07.89 Other chest pain; Z79.82 Long term (current) use of aspirin
CPT/HCPCS: 36415; 36416; 71045; 80053; 82962; 83735; 84132; 84484; 85025; 85610; 93005; 94640; 96374; 96375; 96376; 99285; J1815; J3490; J7060; J7613

== ENCOUNTER 2024-08-27 07:36 | Outpatient (CLI) | payer MEDICARE, OTHER, SELFPAY ==
--- NOTE | 2024-08-27 07:40 | USR_ITS ---
PROCEDURE INFORMATION: Exam: US Duplex Bilateral Lower Extremity Arteries Exam date and time: 08/27/2024 7:45 AM Age: 83 years old Clinical indication: Condition or disease; Peripheral vascular disease; Additional info: Peripheral vascular dz TECHNIQUE: Imaging protocol: Real-time ultrasound scan of the arteries of the bilateral lower extremities with 2-D posey scale, color Doppler flow and spectral waveform analysis. Images documented and saved. COMPARISON: US renal BI with PV bladder 05/16/2020 2:46 PM FINDINGS: Right external iliac artery: 66.0, 79.8, 77.3 cm/sec, triphasic. Right common femoral artery: Calcified plaque without luminal stenosis. 94 cm/sec, triphasic. Right superficial femoral artery: Proximal SFA 83 cm/sec, triphasic. Mid SFA 74 cm/sec, triphasic, calcified plaque without luminal stenosis. Distal SFA 93 cm/sec, triphasic. Right popliteal artery: Popliteal 44 cm/sec, triphasic. Right calf/foot arteries: S[employer]IOR S[employer]Y MANAGEMENT CONSULTANT 111 cm/sec, triphasic. Dorsalis pedis 70 cm/sec, triphasic. Left external iliac artery: 59.1, 64.0, 51.6 cm/sec, triphasic. Left common femoral artery: Calcified plaque without luminal stenosis. 71 cm/sec, triphasic. Left superficial femoral artery: Proximal SFA 65 cm/sec, triphasic. Mid 87 SFA cm/sec, triphasic, intimal calcification without luminal stenosis. Distal T8 SFA cm/sec, triphasic. Left popliteal artery: Popliteal 43 cm/sec, triphasic. Left calf/foot arteries: SENIOR SAFETY MANAGEMENT CONSULTANT 89 cm/sec, triphasic. Dorsalis pedis 108 cm/sec, triphasic. Comment: Ankle-brachial indices reportedly not calculated due to pressures exceeding 220 mg Hg. US/[place] [id number] IMPRESSION: No stenosis or occlusion.
== END 2024-08-27 07:37 | disposition home or self-care (01) ==
PROVIDERS: PCP Family Medicine; Visit Provider Family Medicine
DX: I70.202 Unspecified atherosclerosis of native arteries of extremities, left leg (principal); I70.291 Other atherosclerosis of native arteries of extremities, right leg
CPT/HCPCS: 93925